=== PATIENT | female | born 1985 | race Caucasian/White ===

== ENCOUNTER 2020-05-02 19:51 | Emergency (ER) | payer OTHER, SELFPAY ==
[2020-05-02 20:19] VITALS: BP 143/85; PULSE 68; RESP 18; TEMP 530.5; TEMP 987; O2SAT 98; BMI 44.3
[2020-05-02 20:33] LABS: Basophils # 0.1 10^3/uL (0.0-0.1); Basophils % 1.2 %; Hematocrit 44.1 % (37.0-47.0); Hemoglobin 14.1 g/dL (11.5-15.3); Lymphocytes # 2.3 10^3/uL (0.8-4.8); Lymphocytes % 26.4 %; Mean Corpuscular Hemoglobin 27.9 pg (28.0-34.0); Mean Corpuscular Volume 87.3 fL (81-99); Mean Platelet Volume 9.8 fL (7.4-10.4); Monocytes # 0.8 10^3/uL (0.2-0.9); Neutrophils # 5.58 10^3/uL (1.8-7.7); Neutrophils % 63.2 %; Nucleated Red Blood Cells % 0 %; Platelet Count 296 10^3/cmm (130-400); Red Blood Count 5.05 10^6/uL (4.1-5.3); White Blood Count 8.9 10^3/uL (4.0-10.0)
[2020-05-02 20:53] LABS: Alanine Aminotransferase 12 U/L (0-33); Albumin Level 4.4 g/dL (3.5-5.2); Alkaline Phosphatase 72 IU/L (35-105); Anion Gap 12.3 (5-19); Aspartate Amino Transferase 14 U/L (0-32); Blood Urea Nitrogen 13 mg/dL (6-20); Calcium 9.1 mg/dL (8.5-10.5); Carbon Dioxide 28 mmol/L (22-29); Chloride 106 mmol/L (98-107); Globulin 2.9 g/dL (1.3-4.6); Glucose 84 mg/dL (65-115); Osmolality Calculated 289 mOsm/kg (285-295); Potassium 4.3 mmol/L (3.5-5.1); Sodium 142 mmol/L (136-145); Total Bilirubin 0.3 mg/dL (0.15-1.2); Total Protein 7.3 g/dL (6.6-8.7)
[2020-05-02 20:54] LABS: HCG, Serum Qual Negative (Negative)
--- NOTE | 2020-05-02 21:33 | W.ED.DIZZY ---
HPI - Dizziness General: Chief Complaint: Dizziness Stated Complaint: dizziness Time Seen by Provider: 05/02/20 21:30 Source: patient Mode of arrival: ambulatory Limitations: no limitations History of Present Illness: HPI Narrative: 34-year-old female who states she has been having dizziness off and on over the last 2 to 3 months. She states she feels like the room is spinning at times and feels like she may pass out sometimes. States that today she had a period where she felt like she cannot pass out. She has never actually passed out. States that her symptoms seem to be worse after she has not ate for a while. She denies any vomiting or diarrhea. Denies any chest pain. She denies any shortness of breath. Associated symptoms: Denies chest pain, nausea or vomiting Review of Systems Const: Reports: fatigue Eyes: Denies: blurry vision or eye discomfort ENMT: Denies: throat pain or dental pain Card: Denies: chest pain Resp: Denies: dyspnea GI: Denies: abdominal pain, nausea, vomiting or diarrhea : Denies: dysuria Musc: Denies: neck pain or back pain Skin/Breast: Denies: rash Neuro: Reports: dizziness Psych: Denies: depression [place]/Lymph: Denies: easy bruising All/Imm: Denies: urticaria Physical Exam Const: COMMON NORMALS: no acute distress, patient oriented x3 and healthy appearing HENMT: COMMON NORMALS: normocephalic and atraumatic HEAD & SCALP: normocephalic and atraumatic Eye: COMMON NORMALS: Equal, round and reactive pupils present and EOMs intact bilaterally PUPIL: Yes Equal, round and reactive pupils present Neck/C-Spine: COMMON NORMALS: full ROM and supple Chest: COMMONS NORMALS: normal inspection of the chest and normal palpation of entire chest wall Resp: COMMON NORMALS: normal respiratory effort, No retractions, No use of accessory muscles and clear to auscultation bilaterally AUSCULTATION: clear to auscultation bilaterally Cardio: COMMON NORMALS: regular rate, regular rhythm and No murmurs present (Cardio) RATE: regular rate RHYTHM: regular rhythm GI: COMMON NORMALS: Normal to inspection, nondistended, normoactive bowel sounds present, Soft to palpation, non-tender and no masses PALPATION: Yes Soft to palpation Extremity: COMMON NORMALS: normal to inspection and full ROM Neuro: COMMON NORMALS: patient oriented x3, moves all extremities and no focal motor deficits Psych: COMMON NORMALS: mental status grossly normal, Normal thought process present and cooperative THOUGHT PROCESS: Normal thought process present Skin: COMMON NORMALS: no rashes or lesions noted and no wounds GENERAL SKIN EXAM: no rashes or lesions noted Course Vital Signs: Vital signs: Vital Signs Temperature 987 F H 05/02/20 20:19 Pulse Rate 68 05/02/20 20:19 Respiratory Rate 18 05/02/20 20:19 Blood Pressure 143/85 05/02/20 20:19 Pulse Oximetry 98 05/02/20 20:19 MDM - Dizziness MDM Narrative: Medical decision making narrative: Patient presents here with dizziness has been going on for a month patient is well-appearing here and EKG and blood work is normal. She has no signs of cardiac cause or pulmonary embolism. Patient stable for discharge and will try to set up with a PCP. She is to return if worsening. She understands and agrees to the plan. Lab Data: Labs: Lab Results 05/02/20 05/02/20 05/02/20 Range/Units 20:28 20:28 20:28 WBC 8.9 (4.0-10.0) 10^3/ uL RBC 5.05 (4.1-5.3) 10^6/u L Hgb 14.1 (11.5-15.3) g/dL Hct 44.1 (37.0-47.0) % MCV 87.3 (81-99) fL MCH 27.9 L (28.0-34.0) pg MCHC 32.0 (30.0-36.0) g/dL RDW 13.0 (12.1-15.1) % Plt Count 296 (130-400) 10^3/c mm MPV 9.8 (7.4-10.4) fL Neut % (Auto) 63.2 % Lymph % (Auto) 26.4 % [place] % (Auto) 9.0 % Eos % (Auto) 0.0 % Baso % (Auto) 1.2 % Neut # (Auto) 5.58 (1.8-7.7) 10^3/u L Lymph # (Auto) 2.3 (0.8-4.8) 10^3/u L [place] # (Auto) 0.8 (0.2-0.9) 10^3/u L Eos # (Auto) 0.0 (0.0-0.8) 10^3/u L Baso # (Auto) 0.1 (0.0-0.1) 10^3/u L Nucleated RBC % (a uto) 0 % Nucleated RBCs # 0.0 /100WBC Sodium 142 (136-145) mmol/L Potassium 4.3 (3.5-5.1) mmol/L Chloride 106 (98-107) mmol/L Carbon Dioxide 28 (22-29) mmol/L Anion Gap 12.3 (5-19) BUN 13 (6-20) mg/dL Creatinine 0.7 (0.5-0.9) mg/dL GFR Calculation 97.0 (90-130) mL/min Glucose 84 (65-115) mg/dL Calculated Osmolal ity 289 (285-295) mOsm/k g Calcium 9.1 (8.5-10.5) mg/dL Total Bilirubin 0.3 (0.15-1.2) mg/dL AST 14 (0-32) U/L ALT 12 (0-33) U/L Alkaline Phosphata se 72 (35-105) IU/L Total Protein 7.3 (6.6-8.7) g/dL Albumin 4.4 (3.5-5.2) g/dL Globulin 2.9 (1.3-4.6) g/dL HCG, Qual Negative (Negative) EKG Data^: EKG 1: Attestation: I personally reviewed and interpreted this EKG as follows: EKG interpretation date: 05/02/20 EKG interpretation time: 21:49 Interpretation: nsr hr [address] or t wave abnormalities qrs 87 qtc 388 Discharge Plan Discharge Patient Disposition: Home Clinical Impression: Dizziness Condition: Stable Discharge Orders: Discharge Order (Routine); Ordered 05/02/20 Ordered By: Johnson Mayorga Discharge Diet: Advance as tolerated Discharge Activity: Resume usual activity Patient Instructions: Dizziness (ED) Coding Level of Care Code ED Sawdust Drier for Chg Fwd Exam Comprehensive
[2020-05-02 22:12] VITALS: PULSE 84; RESP 18; O2SAT 99
[2020-05-02 23:16] LABS: Thyroid Stimulating Hormone 3.03 uIU/mL (0.27-4.20)
--- NOTE | 2020-05-04 12:59 | DCPLANNER ---
senior catering sales manager had message to speak with patient about getting established with a primary care physician. senior catering sales manager called patient at phone number [phone], unable to speak with patient at this time. senior catering sales manager left a voicemail for patient to return manager of case phone call.
== END 2020-05-02 22:13 | disposition home or self-care (01) ==
PROVIDERS: Emergency Provider Emergency Medicine
DX: R42 Dizziness and giddiness (principal)
CPT/HCPCS: 12345; 80053; 84443; 84703; 85025; 99282; 99283

== ENCOUNTER 2020-11-21 11:06 | Emergency (ER) | payer SELFPAY ==
[2020-11-21 11:13] VITALS: BP 162/105; PULSE 82; RESP 18; TEMP 36.7; O2SAT 97; BMI 47.0
--- NOTE | 2020-11-21 12:05 | ED_ITS ---
HPI - Eye Problem General: Chief complaint: Eye Problems Stated complaint: L EYE ISSUES Time Seen by Provider: 11/21/20 11:14 History of Present Illness: HPI Narrative: Patient is a 35-year-old female who comes to the ER complaining of left eye redness. She said yesterday she was seen at urgent care center and they told her she had a hyphema as well. Today there is no hyphema but there is left-sided conjunctivitis. She has discharge and was given antibiotic eyedrop. She has only used 1 drop since yesterday and none today. Came to the ER today because the pain is worse this morning. She keeps her eyes closed because it is sensitive to light. No significant pain or burning described in the ER. MD chief complaint: eye pain and eye redness Duration: constant Location: left eye Eye Symptoms: redness and photophobia If Pain, Quality: burning Associated symptoms: Denies headache(s) or neck pain Review of Systems General: Reports: 10 or more systems reviewed and unremarkable except in HPI and below Const: Denies: fatigue Eyes: Reports: photophobia, eye discharge and eye redness; Denies: change in vision or blurry vision ENMT: Denies: throat pain, swelling of lips/tongue, ear or mastoid pain or nasal congestion Card: Denies: chest pain, palpitations, irregular heart rhythm, edema, dyspnea on exertion or orthopnea Resp: Denies: dyspnea, productive cough or non-productive cough GI: Denies: abdominal pain, diarrhea or GI cramping : Denies: flank pain, difficulty voiding, urinary frequency or urinary urgency Musc: Denies: neck pain, back pain, extremity pain, joint pain, joint redness, limited range of motion or muscle weakness Skin/Breast: Denies: rash, pruritus, erythema, skin pain or skin tenderness Neuro: Denies: headache(s), numbness in extremities, weakness in extremities, sensory changes, difficulty walking, dizziness, confusion or Slurred speech present Psych: Denies: anxiety or depression Endo: Denies: polyuria All/Imm: Denies: urticaria, throat swelling or tongue swelling PFS ED PFSH: Social History (Updated 11/20/20 @ 15:50 by Carrie Menchaca LPN) Smoking and tobacco status: never smoked Physical Exam Const: COMMON NORMALS: no acute distress, average body habitus, patient oriented x3, no limitations, healthy appearing, alert and well nourished GENERAL APPEARANCE: cooperative, comfortable, well kempt and well developed ORIENTATION/CONSCIOUSNESS: Yes awake, Yes oriented to person, Yes oriented to place and Yes oriented to time HENMT: COMMON NORMALS: normocephalic, external ears normal and Normal external nose present HEAD & SCALP: normal to inspection and normocephalic NOSE: Normal external nose present EXTERNAL EAR: Yes external ears normal MOUTH: Normal oral and palatal mucosa present THROAT: posterior oropharynx normal Eye: COMMON NORMALS: Equal, round and reactive pupils present and EOMs intact bilaterally GENERAL EYE: appearance normal, both eyes and all related struc tures PUPIL: Yes Equal, round and reactive pupils present OTHER: Right eye normal. Left eye conjunctivitis with some mild discharge seen. No hyphema seen. Fluorescein exam unremarkable. Neck/C-Spine: COMMON NORMALS: full ROM, no lymphadenopathy, no meningeal signs and no JVD GENERAL: Yes normal visual inspection Lymph: LYMPHATIC: no lymphadenopathy noted Chest: COMMONS NORMALS: normal inspection of the chest and normal palpation of entire chest wall Resp: COMMON NORMALS: normal respiratory effort, No retractions, No use of accessory muscles, clear to auscultation bilaterally and percussion normal EFFORT & INSPECTION: Yes able to speak in complete sentences AUSCULTATION: clear to auscultation bilaterally PERCUSSION: percussion normal Cardio: COMMON NORMALS: no JVD, regular rate, regular rhythm, S1 normal heart sound present, S2 normal heart sound present and Peripheral pulses 2+ throughout RATE: regular rate RHYTHM: regular rhythm HEART SOUNDS: S1 normal heart sound present and S2 normal heart sound present PERIPHERAL PULSES: Peripheral pulses 2+ throughout GI: COMMON NORMALS: Normal to inspection, nondistended, normoactive bowel sounds present, Soft to palpation, non-tender and no masses INSPECTION: Yes normal to inspection PALPATION: Yes Soft to palpation : COMMON NORMALS: Yes no CVA tenderness BLADDER/KIDNEY EXAM: Yes no CVA tenderness Back/Pelvis: COMMON NORMALS: no CVA tenderness, thoracic and lumbar spine normal to inspection, no thoracic nor lumbar tenderness and thoraco-lumbar ROM normal Extremity: COMMON NORMALS: normal to inspection, full ROM, capillary refill normal, no joint enlargement and no pedal edema GENERAL: Yes normal exam except as noted Neuro: COMMON NORMALS: patient oriented x3, CN's II-XII intact bilaterally, moves all extremities, no focal motor deficits, no sensory deficits noted and gait normal SENSORIUM/ORIENTATION: Yes alert, Yes oriented to person, Yes oriented to place and Yes oriented to time MENINGEAL SIGNS: Yes no meningeal signs Psych: COMMON NORMALS: mental status grossly normal, Normal thought process present, cooperative, normal affect and speech normal APPEARANCE: Yes well kempt ATTITUDE: Yes calm SPEECH: Yes normal speech THOUGHT PROCESS: Normal thought process present Skin: COMMON NORMALS: no rashes or lesions noted GENERAL SKIN EXAM: no rashes or lesions noted Course Vital Signs: Vital signs: Vital Signs Temperature 98.0 F 11/21/20 11:13 Pulse Rate 82 11/21/20 11:13 Respiratory Rate 18 11/21/20 11:13 Blood Pressure 162/105 11/21/20 11:13 Pulse Oximetry 97 11/21/20 11:13 MDM - Eye Problem MDM Narrative: Medical decision making narrative: Patient comes to the ER with left eye conjunctivitis. She was seen yesterday at urgent care and given antibiotic eyedrops. She picked it up yesterday and has only given herself 1 drop in the left eye yesterday. Recommended following the prescription and it is likely the irritant effect of the antibiotic eyedrops which makes it feel slightly worse on the first day. Follow-up with [facility] tomorrow which she already has the information for as well. Discharge Plan Discharge Patient Disposition: Home Clinical Impression: Bacterial conjunctivitis Condition: Stable Prescriptions: No Action moxifloxacin 0.5 % drops 1 drp ophthalmic (eye) TID 4 Days Qty: 3 RF: 0 Discharge Orders: Discharge ED (Routine); Ordered 11/21/20 Ordered By: Tee Sims Discharge Diet: Advance as tolerated Discharge Activity: Resume usual activity Patient Instructions: Conjunctivitis (ED), Opioid Safety Activity Restrictions/Additional Instructions: You have conjunctivitis. Please continue to use the moxifloxacin as instructed. Follow-up with [facility] tomorrow and return to the ER with worsening symptoms. Coding Level of Care Code ED Slip Cover Cutter for Kelsey Ortega Exam Comprehensive
[2020-11-21 12:20] VITALS: BP 145/96; PULSE 75; RESP 16; O2SAT 97
== END 2020-11-21 12:22 | disposition home or self-care (01) ==
PROVIDERS: Emergency Provider Family Medicine
DX: H10.89 Other conjunctivitis (principal)

== ENCOUNTER 2021-08-23 17:27 | Emergency (ER) | payer SELFPAY ==
[2021-08-23 17:43] VITALS: BP 151/84; PULSE 77; RESP 18; TEMP 37.2; O2SAT 99; BMI 47.0
[2021-08-23 18:45] LABS: Add Urine Microscopic? YES; Bilirubin Urine Neg (Negative); Blood Urine 3+ (Negative); Glucose Urine UA Norm (Normal); Ketones Urine Negative (Negative); Leukocyte Esterase Urine Negative (Negative); Nitrate Urine Negative (Negative); Protein Urine Neg (Negative); Urine Appearance Hazy (CLEAR); Urine Color Yellow (Yellow); Urobilinogen Urine 1 mg/dL (Negative); pH Urine 6 (5-7)
[2021-08-23 18:46] LABS: Add Urine Culture? No; Bacteria Urine TRACE /hpf; Mucus Urine TRACE /hpf; WBC Urine 0-4 /hpf (0-5)
== END 2021-08-23 19:07 ==
PROVIDERS: Nurse Practitioner Family
DX: Z53.21 Procedure and treatment not carried out due to patient leaving prior to being seen by health care provider (principal)
CPT/HCPCS: 81001

== ENCOUNTER 2021-08-25 17:40 | Inpatient (IN) | payer SELFPAY ==
[2021-08-25 17:46] VITALS: BP 165/90; PULSE 86; RESP 16; TEMP 36.2; O2SAT 98
--- NOTE | 2021-08-25 18:03 | USR_ITS ---
PROCEDURE INFORMATION: Exam: US Abdomen, Limited; Right Upper Quadrant Exam date and time: 08/25/2021 6:03 PM Age: 36 years old Clinical indication: Abdominal pain TECHNIQUE: Imaging protocol: US abdomen. Real time ultrasound with image documentation. Limited exam focused on the right upper quadrant. COMPARISON: US OB >14 Weeks [id number] 06/27/2017 1:08 PM FINDINGS: Liver: Normal. No masses. Gallbladder: Cholelithiasis with gallbladder wall thickening to 8.5 mm concerning for acute cholecystitis. Positive Kwok's sign. Common bile duct: Normal. No stones. No dilation. Pancreas: Visualized pancreas is unremarkable. Right kidney: Normal. No mass. No hydronephrosis. US/US gall bladder [id number] IMPRESSION: Cholelithiasis with gallbladder wall thickening to 8.5 mm concerning for acute cholecystitis. Positive Kwok's sign.
--- NOTE | 2021-08-25 19:34 | W.ED.GENADLT ---
Documented by User: Adan Hirsch MD 08/27/21 22:32 HPI - General Adult General: Chief complaint: Abdominal Pain Stated complaint: RUQ/UPPER CENTRAL ABD PAIN: GALLBLADDER PROBLEMS Time Seen by Provider: 08/25/21 19:23 History of Present Illness: HPI narrative: Patient is a 36-year-old female with no significant past medical history presents emergency room with complaints of right upper quadrant abdominal pain is constant since 630 this morning. Patient tells me that first she first noticed pain about 2 weeks ago. Since then, patient on Sunday has had intermittent colicky pain after eating ice cream to start 30 minutes later. The pain subsided while patient was in the waiting room in the emergency room decided to go home. Since, earlier this morning, patient developed having a significant right upper quadrant abdominal pain has been constant. Patient reports one episode of vomiting with associated nausea reports subjective fever chills at home. Denies any diarrhea, melena hematochezia, or complaints at this time. Denies any prior abd surgeries or hx of kidney stones. No complaints of chest pain, shortness breath, palpitation, sore throat, cough, or running nose. Patient reports pain is 5 out of 10 currently, is a squeezing colicky pain. Onset:2 weeks ago, acutely since 6:30am Duration:ongoing Location:home Severity:moderate Review of Systems Narrative: Constitutional: +subjective fever/chills. HEENT: No vision changes CV: No chest pain, no palpitations PULM: no cough, no dyspnea. GI: +RUQ abdominal pain, +N/+V/-D. : No dysuria MSKEL: No muscle pain SKIN: No new rashes, no lesions. NEURO: No headache, no focal weakness. HEME: No visible bruises PSYCH: Normal mood PFSH ED PFSH: Social History Smoking and tobacco status: never smoked Female Reproductive History: Date of last menstrual period: 08/22/21 Physical Exam Narrative: EXAM NARRATIVE: Head: Atraumatic Eyes: PERRL, conjunctiva without injection ENT: Mucous membrane moist NECK: Supple, ROM intact LUNGS: LCTAB, no crackles/rhonchi CV: RRR ABDOMEN: Soft, +RUQ focal TTP. NO guarding rebound, guarding, rigidity. No CVA tenderness to percussion. +Kwok/Neg McBurney's point tenderness, no suprabupic tenderness to palpation. EXTREMITY: Normal ROM SKIN: No rash or erythema NEURO: Awake and alert, no focal motor deficits PSYCH: Normal mood and affect Course Vital Signs: Vital signs: Vital Signs Temperature 99.5 F 08/27/21 20:00 Pulse Rate 119 H 08/27/21 20:00 Respiratory Rate 17 08/27/21 20:00 Blood Pressure 122/70 08/27/21 20:00 Pulse Oximetry 91 08/27/21 20:00 MDM - General Adult MDM Narrative: Medical decision making narrative: 6-year-old female presented to the emergency room with 1 day of right upper quadrant abdominal pain.. On exam, patient is afebrile, has focal tenderness to to palpation plus Kwok sign. White count 15.5. Ultrasound showed gallbladder thickness of 8.5 mm, CBD not dilated. Case was discussed Dr. Brandt who agrees with OR. Well-controlled with morphine. Patient is no longer vomiting. Patient received cefazolin. Preop labs ordered. Lab Data: Labs: Lab Results 08/25/21 08/25/21 08/25/21 19:23 19:25 19:25 WBC 15.5 10^3/uL H 10 ^3/uL (4.0-10.0) RBC 5.30 10^6/uL 10^6 /uL (4.1-5.3) Hgb 14.6 g/dL g/dL (11.5-15.3) Hct 45.3 % % (37.0-47.0) MCV 85.5 fl fl (81-99) MCH 27.5 pg L pg (28.0-34.0) MCHC 32.2 g/dL g/dL (30.0-36.0) RDW 12.5 % % (12.1-15.1) Plt Count 335 10^3/cmm 10^3 /cmm (130-400) MPV 9.7 fL fL (7.4-10.4) Neut % (Auto) 83.0 % % Lymph % (Auto) 9.0 % % [place] % (Auto) 7.1 % % Eos % (Auto) 0.0 % % Baso % (Auto) 0.6 % % Neut # (Auto) 12.84 10^3/uL H 1 0^3/uL (1.8-7.7) Lymph # (Auto) 1.4 10^3/uL 10^3/ uL (0.8-4.8) [place] # (Auto) 1.1 10^3/uL H 10^ 3/uL (0.2-0.9) Eos # (Auto) 0.0 10^3/uL 10^3/ uL (0.0-0.8) Baso # (Auto) 0.1 10^3/uL 10^3/ uL (0.0-0.1) Nucleated RBC % (a uto) 0 % % Nucleated RBCs # 0.0 /100WBC /100W BC PT 14.80 SECONDS SEC ONDS (12.1-14.9) INR 1.13 (0.8-1.2) APTT 33.1 SECONDS SECO NDS (23.9-36.7) Sodium 139 mmol/L mmol/L (136-145) Potassium 3.8 mmol/L mmol/L (3.5-5.1) Chloride 101 mmol/L mmol/L (98-107) Carbon Dioxide 22 mmol/L mmol/L (22-29) Anion Gap 19.8 H (5-19) BUN 7 mg/dL mg/dL (6-20) Creatinine 0.6 mg/dL mg/dL (0.5-0.9) GFR Calculation 114.4 mL/min mL/m in (90-130) Glucose 120 mg/dL H mg/dL (65-115) Calculated Osmolal ity 287 mOsm/kg mOsm/ kg (285-295) Calcium 8.5 mg/dL mg/dL (8.5-10.5) Total Bilirubin 0.6 mg/dL mg/dL (0.15-1.2) AST 15 U/L U/L (0-32) ALT 13 U/L U/L (0-33) Alkaline Phosphata se 92 IU/L IU/L (35-105) Total Protein 7.3 g/dL g/dL (6.6-8.7) Albumin 4.2 g/dL g/dL (3.5-5.2) Globulin 3.1 g/dL g/dL (1.3-4.6) Lipase 25 U/L U/L (13-60) HCG, Qual Urine Color Urine Appearance Urine pH Ur Specific Gravit y Urine Protein Urine Glucose (UA) Urine Ketones Urine Blood Urine Nitrate Urine Bilirubin Urine Urobilinogen Ur Leukocyte Lina ase Urine RBC Urine WBC Ur Squamous Epith Cells Amorphous Sediment Urine Bacteria Urine Mucus 08/25/21 08/25/21 19:25 19:25 WBC RBC Hgb Hct MCV MCH MCHC RDW Plt Count MPV Neut % (Auto) Lymph % (Auto) [place] % (Auto) Eos % (Auto) Baso % (Auto) Neut # (Auto) Lymph # (Auto) [place] # (Auto) Eos # (Auto) Baso # (Auto) Nucleated RBC % (a uto) Nucleated RBCs # PT INR APTT Sodium Potassium Chloride Carbon Dioxide Anion Gap BUN Creatinine GFR Calculation Glucose Calculated Osmolal ity Calcium Total Bilirubin AST ALT Alkaline Phosphata se Total Protein Albumin Globulin Lipase HCG, Qual Negative (Negative) Urine Color Yellow (Yellow) Urine Appearance Cloudy (CLEAR) Urine pH 5 (5-7) Ur Specific Gravit y 1.030 (1.005-1.030) Urine Protein Neg (Negative) Urine Glucose (UA) Norm (Normal) Urine Ketones 1+ H (Negative) Urine Blood 3+ H (Negative) Urine Nitrate Negative (Negative) Urine Bilirubin 1+ H (Negative) Urine Urobilinogen 1 mg/dL H mg/dL (Negative) Ur Leukocyte Lina ase Negative (Negative) Urine RBC 5-10 /hpf H /hpf (0-2) Urine WBC 0-4 /hpf H /hpf (0-5) Ur Squamous Epith Cells 5-10 /hpf H /hpf (0-5) Amorphous Sediment Not Reportable Urine Bacteria 1+ /hpf H /hpf (NONE) Urine Mucus 1+ /hpf /hpf Discharge Plan Discharge Patient Disposition: Admitted As Inpatient Admit Provider: Adrianna Lutz Clinical Impression: Abdominal pain, Acute cholecystitis Condition: Stable Discharge Diet: Advance as tolerated Discharge Activity: Resume usual activity Coding Level of Care Code ED Aquatic Life Laborer for Chg Fwd Documented by User: Johnson Mayorga MD 08/25/21 23:42 HPI - General Adult General: Chief complaint: Abdominal Pain Stated complaint: RUQ/UPPER CENTRAL ABD PAIN: GALLBLADDER PROBLEMS Time Seen by Provider: 08/25/21 19:23 [facility] ED PFSH: Social History Smoking and tobacco status: never smoked Course Vital Signs: Vital signs: Vital Signs Temperature 99.5 F 08/27/21 20:00 Pulse Rate 119 H 08/27/21 20:00 Respiratory Rate 17 08/27/21 20:00 Blood Pressure 122/70 08/27/21 20:00 Pulse Oximetry 91 08/27/21 20:00 MDM - General Adult MDM Narrative: Medical decision making narrative: Patient was seen by a surgeon down in the ER plan to admit likely do surgery in the morning she has been stable here and got a dose of antibiotics. Lab Data: Labs: Lab Results 08/25/21 08/25/21 08/25/21 19:23 19:25 19:25 WBC 15.5 10^3/uL H 10 ^3/uL (4.0-10.0) RBC 5.30 10^6/uL 10^6 /uL (4.1-5.3) Hgb 14.6 g/dL g/dL (11.5-15.3) Hct 45.3 % % (37.0-47.0) MCV 85.5 fl fl (81-99) MCH 27.5 pg L pg (28.0-34.0) MCHC 32.2 g/dL g/dL (30.0-36.0) RDW 12.5 % % (12.1-15.1) Plt Count 335 10^3/cmm 10^3 /cmm (130-400) MPV 9.7 fL fL (7.4-10.4) Neut % (Auto) 83.0 % % Lymph % (Auto) 9.0 % % [place] % (Auto) 7.1 % % Eos % (Auto) 0.0 % % Baso % (Auto) 0.6 % % Neut # (Auto) 12.84 10^3/uL H 1 0^3/uL (1.8-7.7) Lymph # (Auto) 1.4 10^3/uL 10^3/ uL (0.8-4.8) [place] # (Auto) 1.1 10^3/uL H 10^ 3/uL (0.2-0.9) Eos # (Auto) 0.0 10^3/uL 10^3/ uL (0.0-0.8) Baso # (Auto) 0.1 10^3/uL 10^3/ uL (0.0-0.1) Nucleated RBC % (a uto) 0 % % Nucleated RBCs # 0.0 /100WBC /100W BC PT 14.80 SECONDS SEC ONDS (12.1-14.9) INR 1.13 (0.8-1.2) APTT 33.1 SECONDS SECO NDS (23.9-36.7) Sodium 139 mmol/L mmol/L (136-145) Potassium 3.8 mmol/L mmol/L (3.5-5.1) Chloride 101 mmol/L mmol/L (98-107) Carbon Dioxide 22 mmol/L mmol/L (22-29) Anion Gap 19.8 H (5-19) BUN 7 mg/dL mg/dL (6-20) Creatinine 0.6 mg/dL mg/dL (0.5-0.9) GFR Calculation 114.4 mL/min mL/m in (90-130) Glucose 120 mg/dL H mg/dL (65-115) Calculated Osmolal ity 287 mOsm/kg mOsm/ kg (285-295) Calcium 8.5 mg/dL mg/dL (8.5-10.5) Total Bilirubin 0.6 mg/dL mg/dL (0.15-1.2) AST 15 U/L U/L (0-32) ALT 13 U/L U/L (0-33) Alkaline Phosphata se 92 IU/L IU/L (35-105) Total Protein 7.3 g/dL g/dL (6.6-8.7) Albumin 4.2 g/dL g/dL (3.5-5.2) Globulin 3.1 g/dL g/dL (1.3-4.6) Lipase 25 U/L U/L (13-60) HCG, Qual Urine Color Urine Appearance Urine pH Ur Specific Gravit y Urine Protein Urine Glucose (UA) Urine Ketones Urine Blood Urine Nitrate Urine Bilirubin Urine Urobilinogen Ur Leukocyte Lina ase Urine RBC Urine WBC Ur Squamous Epith Cells Amorphous Sediment Urine Bacteria Urine Mucus 08/25/21 08/25/21 19:25 19:25 WBC RBC Hgb Hct MCV MCH MCHC RDW Plt Count MPV Neut % (Auto) Lymph % (Auto) [place] % (Auto) Eos % (Auto) Baso % (Auto) Neut # (Auto) Lymph # (Auto) [place] # (Auto) Eos # (Auto) Baso # (Auto) Nucleated RBC % (a uto) Nucleated RBCs # PT INR APTT Sodium Potassium Chloride Carbon Dioxide Anion Gap BUN Creatinine GFR Calculation Glucose Calculated Osmolal ity Calcium Total Bilirubin AST ALT Alkaline Phosphata se Total Protein Albumin Globulin Lipase HCG, Qual Negative (Negative) Urine Color Yellow (Yellow) Urine Appearance Cloudy (CLEAR) Urine pH 5 (5-7) Ur Specific Gravit y 1.030 (1.005-1.030) Urine Protein Neg (Negative) Urine Glucose (UA) Norm (Normal) Urine Ketones 1+ H (Negative) Urine Blood 3+ H (Negative) Urine Nitrate Negative (Negative) Urine Bilirubin 1+ H (Negative) Urine Urobilinogen 1 mg/dL H mg/dL (Negative) Ur Leukocyte Lina ase Negative (Negative) Urine RBC 5-10 /hpf H /hpf (0-2) Urine WBC 0-4 /hpf H /hpf (0-5) Ur Squamous Epith Cells 5-10 /hpf H /hpf (0-5) Amorphous Sediment Not Reportable Urine Bacteria 1+ /hpf H /hpf (NONE) Urine Mucus 1+ /hpf /hpf Discharge Plan Discharge Patient Disposition: Admitted As Inpatient Admit Provider: Adrianna Lutz Clinical Impression: Abdominal pain, Acute cholecystitis Condition: Stable Discharge Diet: Advance as tolerated Discharge Activity: Resume usual activity Coding Level of Care Code ED Aquatic Life Laborer for Javierg Jordan
[2021-08-25 19:37] VITALS: RESP 18
[2021-08-25] MEDS: acetaminophen 500 mg Tablet 1000 MG PO (19:37)
[2021-08-25] MEDS: morphine 4 mg/mL SDV 1 mL IVP (19:37)
[2021-08-25 19:40] LABS: Basophils # 0.1 10^3/uL (0.0-0.1); Basophils % 0.6 %; Hematocrit 45.3 % (37.0-47.0); Hemoglobin 14.6 g/dL (11.5-15.3); Lymphocytes # 1.4 10^3/uL (0.8-4.8); Mean Corpuscular HGB Conc 32.2 g/dL (30.0-36.0); Mean Corpuscular Hemoglobin 27.5 pg (28.0-34.0); Mean Corpuscular Volume 85.5 fl (81-99); Mean Platelet Volume 9.7 fL (7.4-10.4); Monocytes # 1.1 10^3/uL (0.2-0.9); Monocytes % 7.1 %; Neutrophils # 12.84 10^3/uL (1.8-7.7); Nucleated Red Blood Cells % 0 %; Platelet Count 335 10^3/cmm (130-400); Red Cell Distribution Width 12.5 % (12.1-15.1); White Blood Count 15.5 10^3/uL (4.0-10.0)
[2021-08-25 19:50] LABS: Add Urine Microscopic? YES; Bilirubin Urine 1+ (Negative); Blood Urine 3+ (Negative); Glucose Urine UA Norm (Normal); Ketones Urine 1+ (Negative); Leukocyte Esterase Urine Negative (Negative); Nitrate Urine Negative (Negative); Protein Urine Neg (Negative); Urine Appearance Cloudy (CLEAR); Urine Color Yellow (Yellow); Urobilinogen Urine 1 mg/dL (Negative); pH Urine 5 (5-7)
[2021-08-25 19:51] LABS: Add Urine Culture? No; Bacteria Urine 1+ /hpf; Mucus Urine 1+ /hpf; Other Sediment, Urine 3+; WBC Urine 0-4 /hpf (0-5)
[2021-08-25 19:56] LABS: HCG, Serum Qual Negative (Negative)
[2021-08-25 19:57] LABS: Alanine Aminotransferase 13 U/L (0-33); Albumin Level 4.2 g/dL (3.5-5.2); Alkaline Phosphatase 92 IU/L (35-105); Anion Gap 19.8 (5-19); Aspartate Amino Transferase 15 U/L (0-32); Blood Urea Nitrogen 7 mg/dL (6-20); Calcium 8.5 mg/dL (8.5-10.5); Carbon Dioxide 22 mmol/L (22-29); Chloride 101 mmol/L (98-107); Globulin 3.1 g/dL (1.3-4.6); Glomerular Filtration Rate 114.4 mL/min (90-130); Glucose 120 mg/dL (65-115); Lipase 25 U/L (13-60); Osmolality Calculated 287 mOsm/kg (285-295); Potassium 3.8 mmol/L (3.5-5.1); Sodium 139 mmol/L (136-145); Total Bilirubin 0.6 mg/dL (0.15-1.2); Total Protein 7.3 g/dL (6.6-8.7)
[2021-08-25] MEDS: sodium chloride 0.9% 1,000 ML 999 ML IV (20:36)
--- NOTE | 2021-08-25 21:07 | ECG_ITS ---
[facility] Test Date: 2021-08-25 Pat Name: Shannon Whittaker Department: Room: Gender: Female Outside Sales Manager: : 1985 Requested By: Adan Hirsch Order Number: [id number] Gera MD: Dianelys Schmidt M.D. Measurements Intervals [place] Rate: 62 P: 10 ID: [id number] QRS: -1 QRSD: 85 T: -9 QT: 377 QTc: 386 Interpretive Statements SINUS RHYTHM WITH SINUS ARRHYTHMIA MODERATE VOLTAGE CRITERIA FOR LVH, CONSIDER NORMAL VARIANT [MEETS CRITERIA IN ONE OF: R(aVL), S(V1), R(V5), R(V5/V6)+S(V1)] No previous ECG available for comparison Electronically Signed On 08-27-2021 7:43:42 PREPARATION PLANT REPAIRER by Dianelys Schmidt M.D. [email or web address] [email or web address] [id number]
[2021-08-25 21:24] LABS: INR 1.13 (0.8-1.2)
[2021-08-25 21:25] LABS: Partial Thromboplastin Time 33.1 SECONDS (23.9-36.7)
[2021-08-25] MEDS: ceFAZolin 1,000 MG in sodium chloride 0.9% (plus) 50 ML 100 MG IV (21:36)
--- NOTE | 2021-08-25 23:53 | PM.CONSULT ---
Providers/Reason For Consult Consulting Physician/Specialty*: General surgery Reason for Consult*: Acute calculus cholecystitis Attending Physician: Adrianna Lutz MD Primary Care Provider: Dolores Birmingham DO History of Present Illness History of Present Illness Shannon Whittaker is a 36 year old female who presents with epigastric abdominal pain, 6-7 out of 10 in intensity that is radiating to her back. She had a similar episode 2 days ago when she ate ice cream. The pain however subsided on its own. Today the pain has not subsided on its own. She had pain similar to this a few weeks ago she does not know what initiated the pain at that time. She denies fevers and chills, she denies nausea. Patient reports that when she was having abdominal ultrasound that the probe was tender at the right upper quadrant and that the ER physician elicited a positive Kwok sign. Past medical history: Patient denies any. Patient appears to have morbid obesity however. Past surgical history: Patient denies any abdominal surgeries, she reports dilatation curettage. Social history: Patient denies any alcohol or tobacco abuse. She works at [employer]. She lives with her and 2 children. Allergies: Patient denies any allergies. Family history: Patient reports that her paternal grand mother of pancreatic cancer at a very old age. Patient obtained an ultrasound at the ER which demonstrates gallbladder wall thickening to 8 mm. Review of Systems General: Reports: 10 or more systems reviewed and unremarkable except in HPI and below Meds/Allergies Home Medications and Allergies Home Medications Medication Instructions Recorded Confirmed Last Taken Type moxifloxacin 0.5 % eye drops 1 drp OPHTHALMIC (EYE) TID 4 Days 11/20/20 11/20/20 Unknown Rx #3 ml Allergies Allergy/AdvReac Type Severity Reaction Status Date / Time No Known Allergies Allergy Verified 11/20/20 15:49 PFSH Acute PFSH: Social History (Updated 11/20/20 @ 15:50 by Carrie Menchaca LPN) Smoking and tobacco status: never smoked Female Reproductive History: Date of last menstrual period: 08/22/21 Vitals/I&O/Wt Last Vital Signs Temp 97.1 F L 08/25/21 17:46 Pulse 86 08/25/21 17:46 Resp 18 08/25/21 19:37 BP 165/90 08/25/21 17:46 Pulse Ox 98 08/25/21 17:46 08/25/21 08/25/21 08/26/21 14:59 22:59 06:59 Intake Total 1050 / 1050 Balance 1050 / 1050 A&P Additional A&P Information 36-year-old female presenting with morbid obesity and epigastric abdominal pain of ultrasound demonstrating gallbladder wall thickening to 8.5 mm and a positive Kwok sign, white blood cell count of 15. Given her age, female gender, and obesity status as well as having 2 children, in addition to her epigastric pain and ultrasound finding of gallbladder wall thickening; all these data points are consistent with presentation of acute calculus cholecystitis. The LFTs are within normal limits including the total bilirubin and the alkaline phosphatase. Laparoscopic possible open cholecystectomy is indicated to resolve the patient's symptoms and prevent further worsening of her gallbladder. The risks benefits alternatives indications and expected perioperative course of this procedure for the patient was explained in simple details and she desires to proceed after expressing understanding of them. As this patient has normal LFTs, we shall proceed with laparoscopic cholecystectomy without intraoperative cholangiogram unless need arises intraoperatively. Plan: 1. N.p.o. after midnight IV fluids 2. IV antibiotics to prevent further infectious propagation of the cholecystitis 3. To the OR tomorrow for laparoscopic cholecystectomy. Coding Level of Care Code Acute Global Program Director for Kelsey Ortega
[2021-08-26] VITALS (24 sets, daily range): BP systolic 106–163; BP diastolic 68–97; PULSE 53–97; RESP 14–22; TEMP 36.1–37.1; O2SAT 92–100
--- NOTE | 2021-08-26 00:02 | PM.PN ---
Vitals/I&O/Wt Last Vital Signs Temp 97.1 F L 08/25/21 17:46 Pulse 86 08/25/21 17:46 Resp 18 08/25/21 19:37 BP 165/90 08/25/21 17:46 Pulse Ox 98 08/25/21 17:46 08/25/21 08/25/21 08/26/21 14:59 22:59 06:59 Intake Total 1050 / 1050 Balance 1050 / 1050 Data : 08/25/21 19:25 08/25/21 19:25 A&P Additional A&P Information I saw and examined the patient. She is ready to proceed to the OR. The risks benefits indications alternatives and benefits of laparoscopic possible open cholecystectomy was explained to the patient. She expressed understanding desires to proceed. Attestations Medical Necessity Statement*: Admission required due to the need for laparoscopic cholecystectomy Coding Level of Care Code Acute Nuclear Powerplant Mechanic for Kelsey Ortega
--- NOTE | 2021-08-26 00:22 | PM.HP ---
Providers/Chief Complaint Admitting Physician: Adrianna Lutz MD Primary Care Provider: Dolores Birmingham DO Chief Complaint: RUQ/UPPER CENTRAL ABD PAIN: GALLBLADDER PROBLEMS History of Present Illness Shannon Whittaker is a 36 year old female without known medical comorbidties p/w upper abdominal pain that started 2 days ago, intermittent, radiating into her back. No h/o trauma. Originally pain started 2 days ago while eating some ice cream, was transient and resolved. HAs had similar episodes of transient pain lasting ~30 min at a time over the past couple of months. Presented to ER today when pain did not resolve. ROS + for nausea, poor appetie. No alteration in BM. No fever. US obtained in ER showed features of acute calculous cholecystitis with + Kwok's sign. LFTs WNL. LMP - 08/22/21. Last - 2018. past h/o D&C but no other abdominal procedures. Transiently hypertensive 165/90 mmhg in ER, resolved with pain control. Denies past h/o HTN, DM, CAD. Review of Systems General: Reports: 10 or more systems reviewed and unremarkable except in HPI and below Const: Denies: fever(s), chills or body aches Eyes: Denies: change in vision, blurry vision or photophobia ENMT: Denies: throat pain, enlarged tonsils, odynophagia or nasal congestion Card: Denies: chest pain, palpitations, irregular heart rhythm, edema, swelling of feet/ankles, lightheadedness, pre-syncope, dyspnea on exertion or orthopnea Resp: Denies: dyspnea, productive cough, non-productive cough, wheezing, stridor, pain on inspiration, change in phlegm color, hemoptysis or chest congestion GI: Reports: abdominal pain and nausea; Denies: vomiting, hematemesis, coffee ground emesis, dysphagia, heartburn, constipation, GI cramping, change in stool character, hematochezia or melena : Denies: flank pain, difficulty voiding, dysuria, urinary frequency, urinary urgency, urinary hesitancy or hematuria Musc: Denies: neck pain, back pain, extremity pain, joint swelling, joint warmth or deformity Neuro: Denies: headache(s), numbness in extremities, weakness in extremities, sensory changes, difficulty walking, frequent falls, dizziness, vertigo, behavioral changes, Slurred speech present or seizure-like activity Psych: Denies: anxiety, depression, suicidal ideation or homicidal ideation Endo: Denies: polyuria, polydipsia, tired all the time, cold intolerance or hot flashes [place]/Lymph: Denies: easy bruising or easy bleeding Medications/Allergies Home Medications Medication Instructions Recorded Confirmed Last Taken Type moxifloxacin 0.5 % eye drops 1 drp OPHTHALMIC (EYE) TID 4 Days 11/20/20 11/20/20 Unknown Rx #3 ml Allergies Allergy/AdvReac Type Severity Reaction Status Date / Time No Known Allergies Allergy Verified 11/20/20 15:49 PFSH Acute PFSH: Social History Smoking and tobacco status: never smoked Female Reproductive History: Date of last menstrual period: 08/22/21 Vitals/I&O/Wt Last Vital Signs Temp 97.1 F L 08/25/21 17:46 Pulse 86 08/25/21 17:46 Resp 18 08/25/21 19:37 BP 165/90 08/25/21 17:46 Pulse Ox 98 08/25/21 17:46 08/25/21 08/25/21 08/26/21 14:59 22:59 06:59 Intake Total 1050 / 1050 Balance 1050 / 1050 Physical Exam Narrative: EXAM NARRATIVE: General: No acute distress, AO x3 HEENT: PERRLA, pupils bilaterally equal and reactive, pallors not present Chest: Normal vesicular breath sounds, no added sounds, equal good air entry bilaterally CVS: S1-S2 regular, no murmurs, no tachycardia, no gallops, no rubs Abdomen: Soft, discomfort to palpaton epigastric region, no organomegaly, bowel sounds present Neuro: No focal deficits, no facial deformity, AO x3, power 5/5 in all limbs Data : 08/25/21 19:25 08/25/21 19:25 Attestation for Other Data: I personally reviewed and interpreted the following: Other data: Laboratory Results WBC 15.5 10^3/uL (4.0-10.0) H 08/25/21 19:25 RBC 5.30 10^6/uL (4.1-5.3) 08/25/21 19:25 Hgb 14.6 g/dL (11.5-15.3) 08/25/21 19: Hct 45.3 % (37.0-47.0) 08/25/21: MCV 85.5 fl (81-99) 08/25/21: MCH 27.5 pg (28.0-34.0) L 08/25/21: MCHC 32.2 g/dL (30.0-36.0) 08/25/21: RDW 12.5 % (12.1-15.1) 08/25/21: Plt Count 335 10^3/cmm (130-400) 08/25/21: MPV 9.7 fL (7.4-10.4) 08/25/21: Neut % (Auto) 83.0 % 08/25/21: Lymph % (Auto) 9.0 % 08/25/21: [place] % (Auto) 7.1 % 08/25/21: Eos % (Auto) 0.0 % 08/25/21: Baso % (Auto) 0.6 % 08/25/21: Neut # (Auto) 12.84 10^3/uL (1.8-7.7) H 08/25/21: Lymph # (Auto) 1.4 10^3/uL (0.8-4.8) 08/25/21: [place] # (Auto) 1.1 10^3/uL (0.2-0.9) H 08/25/21: Eos # (Auto) 0.0 10^3/uL (0.0-0.8) 08/25/21: Baso # (Auto) 0.1 10^3/uL (0.0-0.1) 08/25/21: Nucleated RBC % (auto) 0 % 08/25/21 Nucleated RBCs # 0.0 /100WBC 08/25/21: PT 14.80 SECONDS (12.1-14.9) 08/25/21: INR 1.13 (0.8-1.2) 08/25/21: APTT 33.1 SECONDS (23.9-36.7) 08/25/21 19:23 Sodium 139 mmol/L (136-145) 08/25/21 19:25 Potassium 3.8 mmol/L (3.5-5.1) 08/25/21 19:25 Chloride 101 mmol/L (98-107) 08/25/21 19:25 Carbon Dioxide 22 mmol/L (22-29) 08/25/21 19:25 Anion Gap 19.8 (5-19) H 08/25/21 19:25 BUN 7 mg/dL (6-20) 08/25/21 19:25 Creatinine 0.6 mg/dL (0.5-0.9) 08/25/21 19:25 GFR Calculation 114.4 mL/min (90-130) 08/25/21 19:25 Glucose 120 mg/dL (65-115) H 08/25/21 19:25 Calculated Osmolality 287 mOsm/kg (285-295) 08/25/21 19:25 Calcium 8.5 mg/dL (8.5-10.5) 08/25/21 19:25 Total Bilirubin 0.6 mg/dL (0.15-1.2) 08/25/21 19:25 AST 15 U/L (0-32) 08/25/21 19:25 ALT 13 U/L (0-33) 08/25/21 19:25 Alkaline Phosphatase 92 IU/L (35-105) 08/25/21 19:25 Total Protein 7.3 g/dL (6.6-8.7) 08/25/21 19:25 Albumin 4.2 g/dL (3.5-5.2) 08/25/21 19:25 Globulin 3.1 g/dL (1.3-4.6) 08/25/21 19:25 Lipase 25 U/L (13-60) 08/25/21 19:25 HCG, Qual Negative (Negative) 08/25/21 19:25 Urine Color Yellow (Yellow) 08/25/21 19:25 Urine Appearance Cloudy (CLEAR) 08/25/21 19:25 Urine pH 5 (5-7) 08/25/21 19:25 Ur Specific [place] 1.030 (1.005-1.030) 08/25/21 19:25 Urine Protein Neg (Negative) 08/25/21 19:25 Urine Glucose (UA) Norm (Normal) 08/25/21 19:25 Urine Ketones 1+ (Negative) H 08/25/21 19:25 Urine Blood 3+ (Negative) H 08/25/21 19:25 Urine Nitrate Negative (Negative) 08/25/21 19:25 Urine Bilirubin 1+ (Negative) H 08/25/21 19:25 Urine Urobilinogen 1 mg/dL (Negative) H 08/25/21 19:25 Ur Leukocyte Esterase Negative (Negative) 08/25/21 19:25 Urine RBC 5-10 /hpf (0-2) H 08/25/21 19:25 Urine WBC 0-4 /hpf (0-5) H 08/25/21 19:25 Ur Squamous Epith Cells 5-10 /hpf (0-5) H 08/25/21 19:25 Amorphous Sediment Not Reportable 08/25/21 19:25 Urine Bacteria 1+ /hpf (NONE) H 08/25/21 19:25 Urine Mucus 1+ /hpf 08/25/21 19:25 Impressions Gallbladder Ultrasound 08/25/21 18:03 IMPRESSION: Cholelithiasis with gallbladder wall thickening to 8.5 mm concerning for acute cholecystitis. Positive Kwok's sign. A&P Assessment and plan (1) Acute cholecystitis: admit med/surg NPO IVF d5NS @75cc/hr prn morphine , toradol for pain control Prn zofran for nausea Empiric Piperacillin/Tazobactam given leukocytosis, possible infection, no signs of severe sepsis at this time. Will suffice as pre op ppx additionally. general surgery consult- planned lap galina in am Status: Acute Attestations Medical Necessity Statement*: anticipate > 2midnight admission for above defined care Coding Level of Care Code Acute Bakery Worker Conveyor Line for [facility] Fwd Diagnoses Acute cholecystitis K81.0
[2021-08-26] MEDS: famotidine 20 mg/2 mL INJ IVP (01:14)
[2021-08-26] MEDS: dextrose 5%-sod chloride 0.9% 1,000 ML 75 ML IV ×2 (01:14→15:45)
[2021-08-26] MEDS: piperacillin-tazobactam 3.375 GM in sodium chloride 0.9% (plus) 50 ML IV ×3 (01:14→15:46)
[2021-08-26] MEDS: ketorolac 30 mg/mL INJ 15 MG IVP ×2 (08:25→15:45)
--- NOTE | 2021-08-26 09:34 | ANES.PREANE2 ---
Pre-Anesthetic Assessment Pre-Anesthetic Assessment: Height/Weight: Height 1.7 m Weight 143.834 kg Temp Pulse Resp BP Pulse Ox 97.8 F 67 16 119/73 98 08/26/21 07:58 08/26/21 07:58 08/26/21 07:58 08/26/21 07:58 08/26/21 07:58 Proposed Procedure: Operation Date: 08/26/21 10:00 Proposed Procedures p Laparoscopic Cholecystectomy(Not Applicable) - Mitch Brandt MD Was Beta Sasha taken within 24 hours: N/A Was Clonidine taken within 24 hours: N/A Social: Social History: No alcohol and No tobacco Exam: Pre-Anes Outpt Exam: alert, oriented x 3, clear to auscultation bilaterally and regular rate & rhythm Airway: Submandibular: WNL Cervical ROM: WNL MP: 2 Dentition: Full History/ROS: No significant history except as noted GI: Comments: cholecystitis Metabolic: Metabolic: Morbid obesity Anesthetic Plan: ASA status: 2 Anesthesia: General Risk of > 500 ml blood loss (7ml/kg in children): No Meds/Allergies Current Medications: Current Medications Generic Name Dose Route Start Last Admin Trade Name Freq PRN Reason Stop Dose Admin Famotidine 20 mg 08/26/21 00:15 08/26/21 01:14 Famotidine 20 Mg /2 Ml Inj IVP 20 mg Q12H FABBY Administration Dextrose/Sodium Ch loride 1,000 mls @ 75 ml s/hr 08/26/21 00:15 08/26/21 01:14 Dextrose 5%-Sod Chloride 0.9% IV 75 mls/hr .[id number] FABBY Administration Piperacillin Sod/T azobactam 50 mls @ 12.5 mls /hr 08/26/21 01:00 08/26/21 08:24 Sod 3.375 gm/ So dium Chloride IV 12.5 mls/hr Q8H FABBY Administration Protocol Ketorolac Trometha mine 15 mg 08/26/21 02:25 08/26/21 08:25 Ketorolac 30 Mg/ Ml Inj IVP 08/29/21 02:24 15 mg Q8H PRN Administration MODERATE PAIN PFSH Anesthesia PFSH: Social History Smoking and tobacco status: never smoked Female Reproductive History: Date of last menstrual period: 08/22/21 Data Anesthesia CBC & Chem 7: 08/25/21 19:25 08/25/21 19:25 Other Labs: Laboratory Results - last 48 hr 08/25/21 08/25/21 08/25/21 19:23 19:25 19:25 WBC 15.5 H RBC 5.30 Hgb 14.6 Hct 45.3 MCV 85.5 MCH 27.5 L MCHC 32.2 RDW 12.5 Plt Count 335 MPV 9.7 Neut % (Auto) 83.0 Lymph % (Auto) 9.0 [place] % (Auto) 7.1 Eos % (Auto) 0.0 Baso % (Auto) 0.6 Neut # (Auto) 12.84 H Lymph # (Auto) 1.4 [place] # (Auto) 1.1 H Eos # (Auto) 0.0 Baso # (Auto) 0.1 Nucleated RBC % (auto) 0 Nucleated RBCs # 0.0 PT 14.80 INR 1.13 APTT 33.1 Sodium 139 Potassium 3.8 Chloride 101 Carbon Dioxide 22 Anion Gap 19.8 H BUN 7 Creatinine 0.6 GFR Calculation 114.4 Glucose 120 H Calculated Osmolality 287 Calcium 8.5 Total Bilirubin 0.6 AST 15 ALT 13 Alkaline Phosphatase 92 Total Protein 7.3 Albumin 4.2 Globulin 3.1 Lipase 25 HCG, Qual Urine Color Urine Appearance Urine pH Ur Specific [place] Urine Protein Urine Glucose (UA) Urine Ketones Urine Blood Urine Nitrate Urine Bilirubin Urine Urobilinogen Ur Leukocyte Esterase Urine RBC Urine WBC Ur Squamous Epith Cells Amorphous Sediment Urine Bacteria Urine Mucus 08/25/21 08/25/21 19:25 19:25 WBC RBC Hgb Hct MCV MCH MCHC RDW Plt Count MPV Neut % (Auto) Lymph % (Auto) [place] % (Auto) Eos % (Auto) Baso % (Auto) Neut # (Auto) Lymph # (Auto) [place] # (Auto) Eos # (Auto) Baso # (Auto) Nucleated RBC % (auto) Nucleated RBCs # PT INR APTT Sodium Potassium Chloride Carbon Dioxide Anion Gap BUN Creatinine GFR Calculation Glucose Calculated Osmolality Calcium Total Bilirubin AST ALT Alkaline Phosphatase Total Protein Albumin Globulin Lipase HCG, Qual Negative Urine Color Yellow Urine Appearance Cloudy Urine pH 5 Ur Specific [place] 1.030 Urine Protein Neg Urine Glucose (UA) Norm Urine Ketones 1+ H Urine Blood 3+ H Urine Nitrate Negative Urine Bilirubin 1+ H Urine Urobilinogen 1 H Ur Leukocyte Esterase Negative Urine RBC 5-10 H Urine WBC 0-4 H Ur Squamous Epith Cells 5-10 H Amorphous Sediment Not Reportable Urine Bacteria 1+ H Urine Mucus 1+ Cardiac Studies: No Data to Display
[2021-08-26] MEDS: sodium chloride 0.9% 1,000 ML 30 ML IV (09:39)
--- NOTE | 2021-08-26 13:25 | P.OP_ITS ---
Operative Report Date of procedure: August 26, 2021 Pre-op Diagnosis: Acute calculus cholecystitis Post-op diagnosis: same Procedure Done: 1. Laparoscopic cholecystectomy 2. Liver biopsy of segment 2 Pathology: 1. Gallbladder and contents 2. Liver biopsy segment 2 Surgeon: Mitch Brandt Anesthesia: General Estimated blood loss (mL): 100 Condition: stable Disposition: floor Procedure: Patient was taken to the OR by the OR staff. She was laid supine induced and intubated. She was prepped and draped in a sterile fashion. A timeout was performed. A cutdown technique at the umbilicus and to the peritoneal cavity with a 15 mm trocar. 5 mL trochars were inserted at the epigastric and in the right mid and right lower quadrants. The gallbladder was grasped and retracted. Immediately was appreciated that the gallbladder was significantly inflamed with the body of the gallbladder adherence to omentum peritoneal tissue and to the anel hepatis. This was carefully teased apart. As progress was slow, a top-down approach was made with division of the peritoneal attachments of the gallbladder to the liver with the use of hook cautery. I stayed very close to the gallbladder to ensure no injury whatsoever to the anel hepatis. Eventually only 1 structure was noted to be entering into the gallbladder from the anel hepatis. The gallbladder was otherwise successfully mobilized from all of her attachments and only tied to the patient's anatomy by the single structure. At this point I believe I had achieved the critical view and that the cystic artery had been obliterated with the use of hook cautery, as I could only see liver behind the gallbladder. There was no bile leaking from the anel hepatis at this point. There were no open lumens or transected lumens evident. A clip was placed on the gallbladder side of this single tubular structure. An attempt was made to perform a cholangiogram by partially transecting the lumen of the single structure with the use of laparoscopic scissors. Unfortunately a small arterial bleed occurred immediately afterwards. It was then appreciated that at least part if not the entire nature of this tubular structure was the cystic artery. It is unclear at this point if this was the cystic duct as well which was fused to the cystic artery. Because of the arterial bleeding clip had to be placed on this singular tubular structure in its entire circumference on either side of the transection and therefore cholangiogram could not be performed. Hemostasis was achieved. 2 additional clips were placed on the patient staying side of this tubular st ructure. It was then divided and the gallbladder was then placed in an Endo Catch bag. The specimen was removed and at the back table I personally section the gallbladder myself identified numerous gallstones. I could not identify a cystic duct lumen. It is possible that due to the significant inflammation of the patient's disease process that the cystic duct was completely obliterated and scarred in. I conducted a thorough search of the anel hepatis. There was no active bile leak whatsoever. 3 L of sterile saline irrigation was utilized and no bile leak was noted. I found a small tubular structure coming off the anel hepatis which may have had a diminutive cystic duct within it and was definitely not the common bile duct. I clipped this twice. At this point unable to perform a cholangiogram and having done everything in my ability to look for a bile leak I proceeded to conclude the case. I placed an 8 Dominican JOHN drain in the gallbladder fossa, and performed liver biopsy on segment 2 afternoon to find a small mass. This was sent for permanent pathology. The umbilical fascial incision which had to be enlarged to remove the gallbladder was closed laparoscopically with 0 Vicryl in a [id number] fashion. Pneumoperitoneum was then released and the skin incisions were closed with 4-0 Monocryl. All the incisions were reinforced with Dermabond and the umbilical incision was reinforced with a pressure dressing with the use of gauze and Tegaderm. The patient tolerated procedure well and awoke from anesthesia to be transferred to the PACU. The disposition of the patient is good. I called the patient's and informed him of the significant difficulty of the case and he expressed an understanding of this.
--- NOTE | 2021-08-26 13:42 | SUR.PHASEI ---
received patient from or staff. patient responds to verbal.good ventilating well. damian drain patent with serosanguineous fluid noted.
--- NOTE | 2021-08-26 13:45 | SUR.PHASEI ---
oral airway removed.airway patent. nsr on monitor.
[2021-08-26] MEDS: fentaNYL 50 mcg/mL INJ 2mL IVP (14:02)
[2021-08-26] MEDS: ondansetron 2 mg/ML SDV 2 mL 4 MG (14:02)
--- NOTE | 2021-08-26 14:05 | SUR.PHASEI ---
patient medicated for pain and nausea. patient states she feels better.
--- NOTE | 2021-08-26 14:18 | SUR.PHASEI ---
patient states she wants to go to her hospital bed. report called to 2nd floor nurse . patient transported to floor with o2.
[2021-08-26 14:35] LABS: Coronavirus Test Green County Not Detected
--- NOTE | 2021-08-26 14:51 | P.PN_ITS ---
Subjective Subjective: Interval history: This morning patient was seen, she continues to have right upper quadrant pain, no fevers, chills, no nausea, vomiting, no history of lung disease, no history of smoking, denies a history of DVTs, denies a history of PEs, denies being Vitals/I&O/Wt Last Vital Signs Temp 98.7 F 08/26/21 14:40 Pulse 69 08/26/21 14:40 Resp 16 08/26/21 14:40 BP 125/78 08/26/21 14:40 Pulse Ox 92 08/26/21 14:40 08/25/21 08/26/21 08/26/21 22:59 06:59 14:59 Intake Total 1050 / 1050 50 / 1100 1700 / 1700 Output Total 100 / 100 Balance 1050 / 1050 50 / 1100 1600 / 1600 Weight last 48 hrs Weight 143.834 kg Physical Exam Const: COMMON NORMALS: no acute distress and patient oriented x3 HENMT: COMMON NORMALS: normocephalic HEAD & SCALP: normocephalic Resp: COMMON NORMALS: normal respiratory effort, No retractions, No use of accessory muscles and clear to auscultation bilaterally AUSCULTATION: clear to auscultation bilaterally Cardio: COMMON NORMALS: regular rate, regular rhythm, S1 normal heart sound present and S2 normal heart sound present RATE: regular rate RHYTHM: regular rhythm HEART SOUNDS: S1 normal heart sound present and S2 normal heart sound present GI: COMMON NORMALS: Normal to inspection, nondistended, normoactive bowel sounds present and non-tender PALPATION: Yes Tenderness to palpation present (GI) Details: RUQ Extremity: COMMON NORMALS: no pedal edema Neuro: COMMON NORMALS: patient oriented x3 Psych: COMMON NORMALS: mental status grossly normal Data : 08/25/21 19:25 08/25/21 19:25 A&P Assessment and plan (1) Acute cholecystitis: admit med/surg NPO IVF d5NS @75cc/hr prn morphine , toradol for pain control Prn zofran for nausea Empiric Piperacillin/Tazobactam given leukocytosis, possible infection, no signs of severe sepsis at this time. Will suffice as pre op ppx additionally. general surgery consult- planned lap galina today Status: Acute Attestations Medical Necessity Statement*: Patient requires hospitalization for acute cholecystitis Coding Level of Care Code Acute Associate Dean Of Women for [facility] Fw Diagnoses Acute cholecystitis K81.0
[2021-08-26] MEDS: morphine 4 mg/mL SDV 1 mL 2 MG IVP ×2 (14:56→20:37)
[2021-08-26] MEDS: ondansetron 2 mg/ML SDV 2 mL 4 MG IVP (14:57)
--- NOTE | 2021-08-26 15:13 | PC.CHAP ---
Pastoral Care Encounter/Spiritual Assessment Type of Contact [] Declined sheriffs detective visit [] Patient/Family/Request visit [] Outpatient visit [] Follow-up visit [] Physician referral [] Code/Alert [] Routine visit [] Staff referral [] Actively dying [] Patient sleeping [] Family support [] [xx] Out of room [] Palliative care [] [] Receiving care in room [] Pre-surgical visit [] Trauma [] Long length of stay [] ICU visit [] Other: Relational/Emotional Strength [] Patient feels connected with others/family/visitors/staff [] Distress [] Loneliness/isolation [] Abandonment Spirituality of Patient [] Person of Haley [] Attends Yarsanism of their Haley [] Believes in Prayer [] Reads Bible or Christian materials [] There are Spiritual issues to be addressed Tool Carrier Interventions [] Prayer [] Active listening [] Non-anxious presence [] Spiritual/emotional support [] Crisis/trauma care [] Spiritual counseling [] Bereavement support [] Provided bereavement packet [] Provided Bible/devotional materials [] Provided toy/stuffed animal, coloring book to patient or family member [] Provided Communion [] Anointing/Onyx [] Salvation [] Completed spiritual assessment [] Other: Impact on Illness or Injury [] Angry [] Fearful [] Anxious [] Often cries [] Exhaustion [] Unable to work [] Unable to attend adventism [] Unable to walk/stand [] Unable to read [] Unable to drive [] Unable to eat/drink [] Unable to sleep [] Unable to be with family [] Patient intubated [] Other: Summary Time spent with patient
--- NOTE | 2021-08-26 15:37 | PC.NURSE ---
PT'S RING IN SPECIMEN CUP AND UNDERWEAR IN CLEAR BAG WITH PT SWEATBAND DECORATING MACHINE OPERATOR BOTH, TAKEN TO PACU.
[2021-08-26] MEDS: oxyCODONE 5 mg IR Tab/Cap PO ×2 (18:05→23:05)
[2021-08-26 19:30] LABS: Basophils # 0.1 10^3/uL (0.0-0.1); Basophils % 0.3 %; Hematocrit 42.2 % (37.0-47.0); Hemoglobin 13.4 g/dL (11.5-15.3); Lymphocytes # 0.5 10^3/uL (0.8-4.8); Mean Corpuscular HGB Conc 31.8 g/dL (30.0-36.0); Mean Corpuscular Hemoglobin 28.2 pg (28.0-34.0); Mean Corpuscular Volume 88.8 fl (81-99); Monocytes # 1.5 10^3/uL (0.2-0.9); Monocytes % 6.5 %; Neutrophils # 20.34 10^3/uL (1.8-7.7); Neutrophils % 90.7 %; Nucleated Red Blood Cells % 0 %; Platelet Count 245 10^3/cmm (130-400); Red Blood Count 4.75 10^6/uL (4.1-5.3); Red Cell Distribution Width 12.6 % (12.1-15.1); White Blood Count 22.4 10^3/uL (4.0-10.0)
[2021-08-26 19:54] LABS: Alanine Aminotransferase 92 U/L (0-33); Albumin Level 3.4 g/dL (3.5-5.2); Alkaline Phosphatase 97 IU/L (35-105); Blood Urea Nitrogen 7 mg/dL (6-20); Calcium 7.8 mg/dL (8.5-10.5); Carbon Dioxide 15 mmol/L (22-29); Chloride 107 mmol/L (98-107); Globulin 2.7 g/dL (1.3-4.6); Glomerular Filtration Rate 114.4 mL/min (90-130); Glucose 174 mg/dL (65-115); Osmolality Calculated 286 mOsm/kg (285-295); Sodium 137 mmol/L (136-145); Total Protein 6.1 g/dL (6.6-8.7)
[2021-08-26 19:57] LABS: Anion Gap 19.4 (5-19); Aspartate Amino Transferase 122 U/L (0-32); Potassium 4.4 mmol/L (3.5-5.1)
--- NOTE | 2021-08-26 20:12 | PM.PN ---
Vitals/I&O/Wt Last Vital Signs Temp 97.8 F 08/26/21 16:00 Pulse 75 08/26/21 16:00 Resp 16 08/26/21 18:05 BP 106/68 08/26/21 16:00 Pulse Ox 98 08/26/21 16:00 08/26/21 08/26/21 08/26/21 06:59 14:59 22:59 Intake Total 50 / 1100 2700 / 2700 50 / 2750 Output Total 100 / 100 Balance 50 / 1100 2600 / 2600 50 / 2650 Weight last 48 hrs Weight 317 lb 1.6 oz Data : 08/26/21 18:58 08/26/21 19:20 A&P Additional A&P Information Pt is post-op from laparoscopic cholecystectomy. JOHN drain has produced 25ml of sanguinous output. Patient has pain from surgery 5-02/17 but under control with medications. The labs show T brittanie of 1.0. This is reassuring that there is no bile leak and no common duct injury. Attestations Medical Necessity Statement*: Inpatient stay warranted for postoperative recovery from lap galina Coding Level of Care Code Acute Motorcycle Police for Chg Jordan
[2021-08-27] VITALS (10 sets, daily range): BP systolic 105–157; BP diastolic 65–97; PULSE 90–119; RESP 16–32; TEMP 36.7–37.8; O2SAT 91–96
[2021-08-27] MEDS: ketorolac 30 mg/mL INJ 15 MG IVP ×3 (00:50→18:36)
[2021-08-27] MEDS: famotidine 20 mg/2 mL INJ IVP ×2 (00:50→12:18)
[2021-08-27] MEDS: piperacillin-tazobactam 3.375 GM in sodium chloride 0.9% (plus) 50 ML IV ×3 (00:51→18:37)
[2021-08-27] MEDS: oxyCODONE 5 mg IR Tab/Cap PO ×4 (04:35→22:48)
[2021-08-27] MEDS: dextrose 5%-sod chloride 0.9% 1,000 ML 75 ML IV (04:36)
[2021-08-27 07:06] LABS: Albumin Level 2.8 g/dL (3.5-5.2); Alkaline Phosphatase 84 IU/L (35-105); Blood Urea Nitrogen 5 mg/dL (6-20); Calcium 7.5 mg/dL (8.5-10.5); Carbon Dioxide 17 mmol/L (22-29); Chloride 106 mmol/L (98-107); Globulin 2.6 g/dL (1.3-4.6); Glomerular Filtration Rate 95.8 mL/min (90-130); Glucose 101 mg/dL (65-115); Osmolality Calculated 279 mOsm/kg (285-295); Sodium 136 mmol/L (136-145); Total Bilirubin 1.1 mg/dL (0.15-1.2); Total Protein 5.4 g/dL (6.6-8.7)
[2021-08-27 07:15] LABS: Alanine Aminotransferase 78 U/L (0-33); Anion Gap 16.9 (5-19); Aspartate Amino Transferase 75 U/L (0-32); Potassium 3.9 mmol/L (3.5-5.1)
--- NOTE | 2021-08-27 10:45 | PM.PN ---
Vitals/I&O/Wt Last Vital Signs Temp 98.4 F 08/27/21 08:00 Pulse 90 08/27/21 08:00 Resp 16 08/27/21 08:00 BP 157/97 08/27/21 08:00 Pulse Ox 95 08/27/21 08:00 08/26/21 08/27/21 08/27/21 22:59 06:59 14:59 Intake Total 50 / 2750 972.5 / 3722.5 Output Total 25 / 125 15 / 140 Balance 25 / 2625 957.5 / 3582.5 Weight last 48 hrs Weight 317 lb 1.6 oz Data : 08/26/21 18:58 08/27/21 06:17 A&P Additional A&P Information 36-year-old female who is postop day 1 from laparoscopic cholecystectomy for acute on chronic cholecystitis calculus. Subjective: Patient reports very well controlled abdominal pain, very little need for pain medication. She tolerated liquid diet. She is ambulating. Objective: On physical examination the patient is alert oriented, comfortable appearing, abdominal exam shows healthy healing wounds. Minimal bruising. The JOHN drain has minimal amount of serosanguineous fluid. There is no bilious output. LFTs show total bilirubin of 1.1, alkaline phosphatase is less than 200. White blood cell count yesterday was 22. She is on IV Zosyn. No white count today it is pending. Assessment and plan: 46-year-old female with morbid obesity who is postop day 1 from laparoscopic cholecystectomy. JOHN drain is nonbilious and LFTs are normal. Advance her diet to low-fat. Continue the antibiotics. Continue the drain. If lab values are normal tomorrow and the JOHN drain has no bilious output, JOHN drain can be pulled and the patient discharged on a low-fat diet follow-up in 1 to [address] Laureano. Attestations Medical Necessity Statement*: Inpatient stay needed due to difficulty in removing gallbladder and monitoring for bile leak. Coding Level of Care Code Acute Oil And Gas Exploration Technician for Kelsey Ortega
[2021-08-27 12:19] LABS: Basophils # 0.1 10^3/uL (0.0-0.1); Basophils % 0.5 %; Hematocrit 36.9 % (37.0-47.0); Lymphocytes # 1.5 10^3/uL (0.8-4.8); Lymphocytes % 12.1 %; Mean Corpuscular HGB Conc 32.5 g/dL (30.0-36.0); Mean Corpuscular Hemoglobin 28.4 pg (28.0-34.0); Mean Corpuscular Volume 87.2 fl (81-99); Mean Platelet Volume 10.1 fL (7.4-10.4); Monocytes # 1.2 10^3/uL (0.2-0.9); Monocytes % 9.2 %; Neutrophils # 9.74 10^3/uL (1.8-7.7); Neutrophils % 77.8 %; Nucleated Red Blood Cells % 0 %; Platelet Count 255 10^3/cmm (130-400); Red Blood Count 4.23 10^6/uL (4.1-5.3); White Blood Count 12.5 10^3/uL (4.0-10.0)
--- NOTE | 2021-08-27 13:59 | PM.PN ---
Subjective Subjective: Interval history: Patient was seen this morning, she does not that she ambulated after her surgery yesterday, is passing gas from below, has not had a bowel movement, urinating well, no nausea, vomiting, no weakness, dizziness Vitals/I&O/Wt Last Vital Signs Temp 98.5 F 08/27/21 11:19 Pulse 99 08/27/21 11:19 Resp 16 08/27/21 12:18 BP 105/70 08/27/21 11:19 Pulse Ox 94 08/27/21 11:19 08/26/21 08/27/21 08/27/21 22:59 06:59 14:59 Intake Total 50 / 2750 972.5 / 3722.5 Output Total 25 / 125 15 / 140 Balance 25 / 2625 957.5 / 3582.5 Weight last 48 hrs Weight 143.834 kg Physical Exam Const: COMMON NORMALS: no acute distress and patient oriented x3 Resp: COMMON NORMALS: normal respiratory effort, No retractions, No use of accessory muscles and clear to auscultation bilaterally AUSCULTATION: clear to auscultation bilaterally Cardio: COMMON NORMALS: regular rate, regular rhythm, S1 normal heart sound present and S2 normal heart sound present RATE: regular rate RHYTHM: regular rhythm HEART SOUNDS: S1 normal heart sound present and S2 normal heart sound present GI: INSPECTION: Yes abdominal distension AUSCULTATION: Yes normoactive bowel sounds PALPATION: Yes Tenderness to palpation present (GI) (Generalized tenderness), No Guarding due to palpation present (GI) and No Rigid due to palpation OTHER: JOHN drain in place, serous output Extremity: COMMON NORMALS: no pedal edema Neuro: COMMON NORMALS: patient oriented x3 Psych: COMMON NORMALS: mental status grossly normal Data : 08/27/21 11:47 08/27/21 06:17 A&P Assessment and plan (1) Acute cholecystitis: Status post laparoscopic cholecystectomy -JOHN drain in place for serosanguineous fluid Monitoring LFTs, T bili admit med/surg Currently on a clear liquid diet IVF d5NS @75cc/hr, stop prn morphine , toradol for pain control Prn zofran for nausea Continue Zosyn SCDs for DVT prophylaxis Status: Acute Attestations Medical Necessity Statement*: Patient requires hospitalization for acute cholecystitis, status post cholecystectomy Coding Level of Care Code Acute Enrichment Assistant for g Fwd Diagnoses Acute cholecystitis K81.0
[2021-08-28] VITALS (10 sets, daily range): BP systolic 127–149; BP diastolic 79–97; PULSE 68–113; RESP 14–18; TEMP 36.8–37.7; O2SAT 90–97
[2021-08-28] MEDS: piperacillin-tazobactam 3.375 GM in sodium chloride 0.9% (plus) 50 ML IV ×3 (00:08→17:08)
[2021-08-28] MEDS: famotidine 20 mg/2 mL INJ IVP ×3 (00:08→23:10)
[2021-08-28 03:06] LABS: Basophils # 0.1 10^3/uL (0.0-0.1); Basophils % 0.6 %; Hematocrit 35.3 % (37.0-47.0); Hemoglobin 11.7 g/dL (11.5-15.3); Lymphocytes # 1.2 10^3/uL (0.8-4.8); Lymphocytes % 10.5 %; Mean Corpuscular HGB Conc 33.1 g/dL (30.0-36.0); Mean Corpuscular Hemoglobin 28.8 pg (28.0-34.0); Mean Corpuscular Volume 86.9 fl (81-99); Monocytes # 0.9 10^3/uL (0.2-0.9); Monocytes % 8.1 %; Neutrophils % 80.5 %; Nucleated Red Blood Cells % 0 %; Platelet Count 267 10^3/cmm (130-400); Red Blood Count 4.06 10^6/uL (4.1-5.3); White Blood Count 11.6 10^3/uL (4.0-10.0)
[2021-08-28] MEDS: ketorolac 30 mg/mL INJ 15 MG IVP ×2 (03:08→20:08)
[2021-08-28 03:36] LABS: Alanine Aminotransferase 65 U/L (0-33); Albumin Level 3.2 g/dL (3.5-5.2); Alkaline Phosphatase 84 IU/L (35-105); Anion Gap 17.5 (5-19); Aspartate Amino Transferase 43 U/L (0-32); Blood Urea Nitrogen 5 mg/dL (6-20); Calcium 7.9 mg/dL (8.5-10.5); Carbon Dioxide 20 mmol/L (22-29); Chloride 104 mmol/L (98-107); Globulin 2.4 g/dL (1.3-4.6); Glomerular Filtration Rate 141.2 mL/min (90-130); Glucose 91 mg/dL (65-115); Osmolality Calculated 283 mOsm/kg (285-295); Potassium 3.5 mmol/L (3.5-5.1); Sodium 138 mmol/L (136-145); Total Protein 5.6 g/dL (6.6-8.7)
[2021-08-28 03:39] LABS: C Reactive Protein 207.8 mg/L (0.0-4.9)
[2021-08-28] MEDS: oxyCODONE 5 mg IR Tab/Cap PO ×4 (08:27→23:09)
--- NOTE | 2021-08-28 10:37 | PM.PN ---
Vitals/I&O/Wt Last Vital Signs Temp 99.0 F 08/28/21 07:15 Pulse 102 H 08/28/21 07:15 Resp 14 08/28/21 08:27 BP 140/84 08/28/21 07:15 Pulse Ox 95 08/28/21 08:27 08/27/21 08/28/21 08/28/21 22:59 06:59 14:59 Intake Total 1170 / 1220 290 / 1510 Output Total 50 / 50 Balance 1155 / 1205 285 / 1490 -50 / -50 Data : 08/28/21 02:21 08/28/21 02:21 A&P Additional A&P Information 36-year-old female with morbid obesity POD 2 from Laparoscopic Cholecystectomy. Tolerating a diet, JOHN drain only serosanguineous in output. Ambulating. Abdominal pain well controlled. No fever. Overnight however had tachycardia to one hundred. I measured her heart rate right now on exam and I agree that the heart rate is in the 100s. On physical examination her abdomen is soft there is only minimal tenderness to the incisions. The rest of her wounds are clean and intact. White count is eleven. The LFTs are normal. There is clearly no bile leak The patient can be discharged home today. I discontinued the JOHN drain. She may shower in 2 days as the JOHN drain wound is quite large and may require a few days of healing and possibly some gauze dressing reinforcement. She should follow up in surgery clinic in 1 to [address] Laureano's group. Before being discharged home today, please obtain an EKG to ensure no pathology. I suspect the tachycardia is due to her being postoperative from surgery. Attestations Medical Necessity Statement*: Patient can be discharged home today. Inpatient stay was necessary to monitor for bile leak after laparoscopic cholecystectomy Coding Level of Care Code Acute Thermometer Tester for Kelsey Ortega
--- NOTE | 2021-08-28 10:39 | ECG_ITS ---
[facility] Test Date: 2021-08-28 Pat Name: Shannon Whittaker Department: Room: 273 Gender: Female Senior Analyst Programmer: : [id number] Requested By: Norman Judd Order Number: [id number] Gera MD: VITOR GUERRERO Measurements Intervals Mccarley Rate: 103 P: 12 AR: 137 QRS: 1 QRSD: 87 T: -15 QT: 324 QTc: 425 Interpretive Statements SINUS TACHYCARDIA MINIMAL VOLTAGE CRITERIA FOR LVH, CONSIDER NORMAL VARIANT [MEETS CRITERIA IN ONE OF: R(aVL), S(V1), R(V5), R(V5/V6)+S(V1)] PROBABLE INFERIOR MYOCARDIAL INFARCTION , OF INDETERMINATE AGE [35 ms Q WAVE IN II/aVF] Compared to ECG 08/25/2021 21:13:42 Myocardial infarct finding now present Sinus rhythm no longer present Sinus arrhythmia no longer present Electronically Signed On 08-28-2021 19:59:26 KERFER MACHINE OPERATOR by VITOR GUERRERO [id number]
[2021-08-28 11:28] LABS: Troponin(5th) Baseline 18 ng/L (0-10)
[2021-08-28] MEDS: enoxaparin 40 mg/0.4 mL Syringe SUBCUT (12:11)
--- NOTE | 2021-08-28 13:43 | CTR_ITS ---
PROCEDURE INFORMATION: Exam: CTA Chest With Contrast Exam date and time: 08/28/2021 1:43 PM Age: 36 years old Clinical indication: Abnormal findings. Sinus tachycardia. Elevated troponin. TECHNIQUE: Imaging protocol: Computed tomographic angiography of the chest with contrast. 3D rendering (Not supervised by radiologist): MIP and/or 3D reconstructed images were created by the technologist. Radiation optimization: All CT scans at this facility use at least one of these dose optimization techniques: automated exposure control; mA and/or kV adjustment per patient size (includes targeted exams where dose is matched to clinical indication); or iterative reconstruction. Contrast material: OMNI 350; Contrast volume: 95 ml; Contrast route: INTRAVENOUS (IV); COMPARISON: US gall bladder [id number] 08/25/2021 7:45 PM RADIATION DOSE METRICS: Total DLP (mGy-cm): 511.46 FINDINGS: Pulmonary arteries: Assessment for pulmonary embolus is compromised by streak and motion artifacts as well as suboptimal bolus timing. There is a small filling defect in the right middle lobe pulmonary artery extending into a couple branches suspicious for subtle pulmonary embolus (series 2, images 210 to 217). Aorta: No thoracic aortic aneurysm. No thoracic aortic dissection. Thyroid: Indeterminate right thyroid nodule measuring 2.1 cm. An indeterminate isthmic thyroid nodule measures 2.4 cm. Lungs: Dependent consolidation likely reflects atelectasis bilaterally. Subsegmental atelectasis is noted bilaterally. No pulmonary mass. Pleural spaces: Small right and trace left pleural effusions. No pneumothorax. Heart: The heart is enlarged. Trace pericardial fluid. Heart RV/LV ratio: The RV to LV ratio is 0.9. Lymph nodes: A subcarinal lymph node measures 1.2 x 2.3 cm. Diaphragm: No hiatal hernia. Gallbladder and bile ducts: The gallbladder has been removed. There is mild residual edema/wispy hemorrhage in the gallbladder fossa. The spleen is enlarged measuring 13.8 cm. A periportal lymph node measures 1.3 x 1.6 cm. A separate periportal lymph node measures 1.4 x 2.3 cm. Bones/joints: No acute fracture is seen. CT/CT angio chest PE protcl [id number] IMPRESSION: 1. Assessment for pulmonary embolus is compromised by streak and motion artifacts as well as suboptimal bolus timing. There is a small filling defect in the right middle lobe pulmonary artery extending into a couple branches suspicious for subtle pulmonary embolus. There is no evidence of right heart strain. 2. Small right and trace left pleural effusions. 3. Dependent consolidation is seen bilaterally that likely reflects atelectasis. Pneumonia is difficult to completely exclude. 4. Mild mediastinal lymphadenopathy. 5. Cardiomegaly. 6. Indeterminate thyroid nodules. Recommend nonemergent thyroid ultrasound to better characterize. 7. The gallbladder has been removed. There is mild residual edema/wispy hemorrhage in the gallbladder fossa. 8. Splenomegaly with periportal lymphadenopathy. COMMENTS: Consistent with the [place]'s Incidental Findings Committee white paper ([place] [employer]iol 2015): In patients under 35 years old with an incidental thyroid nodule equal to or greater than [address], MRI or extrathyroidal US, further evaluation with dedicated thyroid US is recommended for patients with normal life expectancy and without comorbidities. For smaller nodules without suspicious features, no further evaluation or follow up is recommended.
[2021-08-28 14:04] LABS: Troponin 5 2HR 16.05 ng/L (0-10)
[2021-08-28 14:05] LABS: Troponin 5 2HR Delta -1.95 ABS# (0-10)
[2021-08-28] MEDS: iohexol 350 mg/mL 100 mL Btl IV (14:27)
--- NOTE | 2021-08-28 15:38 | USCV_ITS ---
Shannon Whittaker Age: 36 Gender: F : 1985 Exam Date: 08/28/2021 16:41 Ordering Phys: Norman Judd MD Technologist: JORGE A Exam Location: [facility] [place] Indication: Shortness of breath, assess for right heart strain BP: 140 / 84 HR: 98 Rhythm: Sinus Technical Quality: Fair MEASUREMENTS (Male / Female) Normal Values 2D ECHO LV Diastolic Diameter PLAX 4.4 cm 4.2 - 5.9 / 3.9 - 5.3 cm LV Systolic Diameter PLAX 2.8 cm IVS Diastolic Thickness 1.3 cm 0.6 - 1.0 / 0.6 - 0.9 cm IVS Systolic Thickness 1.5 cm LVPW Diastolic Thickness 1.1 cm 0.6 - 1.0 / 0.6 - 0.9 cm LVPW Systolic Thickness 1.0 cm RV Chamber Size 2.7 cm LV Ejection Fraction 2D Teich 68.2 % LV Ejection Fraction MOD 2C 73.0 % LV Ejection Fraction 2C AL 73.6 % LA Width 3.0 cm LA Height 4.8 cm RA Width 2.7 cm RA Height 4.7 cm M-MODE LV Diastolic Diameter MM 5.5 cm 4.2 - 5.9 / 3.9 - 5.3 cm LV Systolic Diameter MM 3.4 cm LV Ejection Fraction MM Teich 67.0 % IVS Diastolic Thickness MM 1.3 cm 0.6 - 1.0 / 0.6 - 0.9 cm IVS Systolic Thickness MM 1.5 cm LVPW Diastolic Thickness MM 1.1 cm 0.6 - 1.0 / 0.6 - 0.9 cm LVPW Systolic Thickness MM 1.3 cm DOPPLER TR Peak Velocity 306.0 cm/s TR Peak Gradient 37.5 mmHg Right Atrial Pressure 3.0 mmHg Pulmonary Artery Systolic Pressu 40.5 mmHg FINDINGS Left Ventricle Normal left ventricular cavity size. Normal left ventricular systolic function. No regional wall motion abnormalities. Left ventricular ejection fraction is estimated at 60 %. Right Ventricle Right Atrium Left Atrium Mitral Valve Aortic Valve Tricuspid Valve Pulmonic Valve Pericardium Aorta CONCLUSIONS Limited echo therefore no Doppler data was included 1-Normal left ventricular cavity size. Normal left ventricular systolic function. No regional wall motion abnormalities. Left ventricular ejection fraction is estimated at 60 %. 2-All the valves including aortic mitral tricuspid and pulmonic opening and closing fine no Doppler assessment was performed due to limited quality study 3-There is no pericardial effusion. 4-There are no prior echocardiogram studies to compare. Please note that no Doppler analysis for hemodynamics were performed. If it is a full study please repeat the study for valvular assessment Rosangela Zhu MD (Electronically Signed) Final Date: 28 August 2021 19:11 S
--- NOTE | 2021-08-28 15:46 | USR_ITS ---
PROCEDURE INFORMATION: Exam: US Duplex Lower Extremity Veins, Bilateral Exam date and time: 08/28/2021 3:46 PM Age: 36 years old Clinical indication: Pulmonary embolism. DVT. TECHNIQUE: Imaging protocol: Real-time duplex ultrasound of the extremities with 2-D parra scale, color Doppler flow and spectral waveform analysis with image documentation. Complete exam focused on the bilateral lower extremity veins. COMPARISON: US OB >14 Weeks [id number] 06/27/2017 1:08 PM FINDINGS: The common femoral, femoral, popliteal and posterior tibial veins are patent. There is appropriate compression and augmentation. Doppler interogation reveals venous blood flow. US/[place] [id number] IMPRESSION: No evidence of deep venous thrombosis.
[2021-08-28] MEDS: enoxaparin 100 mg/mL Syringe SUBCUT (17:09)
[2021-08-28 19:00] LABS: Troponin 5 6HR 21.18 ng/L (0-10); Troponin 5 6HR Delta 3.18 ng/L (0-12)
--- NOTE | 2021-08-28 19:04 | PC.NURSE ---
Report to Marina AVALOS at this time.
[2021-08-29] VITALS: BP 113/81; PULSE 104; RESP 17; TEMP 38.2; O2SAT 92
[2021-08-29] MEDS: piperacillin-tazobactam 3.375 GM in sodium chloride 0.9% (plus) 50 ML IV ×2 (01:43→08:09)
[2021-08-29 03:17] LABS: Basophils # 0.1 10^3/uL (0.0-0.1); Basophils % 0.8 %; Eosinophils # 0.2 10^3/uL (0.0-0.8); Eosinophils % 1.9 %; Hematocrit 33.8 % (37.0-47.0); Hemoglobin 11.1 g/dL (11.5-15.3); Lymphocytes # 1.8 10^3/uL (0.8-4.8); Lymphocytes % 20.2 %; Mean Corpuscular HGB Conc 32.8 g/dL (30.0-36.0); Mean Corpuscular Hemoglobin 28.5 pg (28.0-34.0); Mean Corpuscular Volume 86.7 fl (81-99); Mean Platelet Volume 9.7 fL (7.4-10.4); Monocytes # 0.9 10^3/uL (0.2-0.9); Monocytes % 9.9 %; Neutrophils # 5.93 10^3/uL (1.8-7.7); Neutrophils % 66.6 %; Nucleated Red Blood Cells % 0 %; Platelet Count 289 10^3/cmm (130-400); White Blood Count 8.9 10^3/uL (4.0-10.0)
[2021-08-29 03:38] LABS: C Reactive Protein 170.2 mg/L (0.0-4.9); Procalcitonin 0.46 ng/mL (0-0.5)
[2021-08-29 03:42] LABS: Alanine Aminotransferase 45 U/L (0-33); Albumin Level 2.9 g/dL (3.5-5.2); Alkaline Phosphatase 80 IU/L (35-105); Anion Gap 16.4 (5-19); Aspartate Amino Transferase 23 U/L (0-32); Blood Urea Nitrogen 8 mg/dL (6-20); Calcium 8.1 mg/dL (8.5-10.5); Carbon Dioxide 22 mmol/L (22-29); Chloride 103 mmol/L (98-107); Globulin 2.8 g/dL (1.3-4.6); Glomerular Filtration Rate 141.2 mL/min (90-130); Glucose 84 mg/dL (65-115); Osmolality Calculated 284 mOsm/kg (285-295); Potassium 3.4 mmol/L (3.5-5.1); Sodium 138 mmol/L (136-145); Total Bilirubin 0.8 mg/dL (0.15-1.2); Total Protein 5.7 g/dL (6.6-8.7)
[2021-08-29 04:00] VITALS: BP 119/77; PULSE 101; RESP 17; TEMP 37.1; O2SAT 92
[2021-08-29] MEDS: enoxaparin 150 mg/mL Syringe 140 MG SUBCUT (06:06)
[2021-08-29 07:24] VITALS: BP 147/83; PULSE 100; RESP 16; TEMP 36.6; O2SAT 92
[2021-08-29 07:31] VITALS: RESP 18
[2021-08-29] MEDS: oxyCODONE 5 mg IR Tab/Cap PO (07:31)
--- NOTE | 2021-08-29 10:11 | PM.DCS ---
Discharge Providers Date of Admission: 08/26/21 00:14 Date of Discharge: August 29, 2021 Attending Provider at Admission: Adrianna Lutz MD Attending Provider at Discharge: Maynor Haro MD Primary Care Provider: Dolores Birmingham DO Diagnoses at Discharge Discharge Diagnosis (1) Acute cholecystitis: Status: Acute Reason for Visit Reason for Visit: RUQ/UPPER CENTRAL ABD PAIN: GALLBLADDER PROBLEMS Hospital Course Hospital Course 36 year old female without known medical comorbidties p/w upper abdominal pain that started 2 days ago, intermittent, radiating into her back. Further work-up during the hospital stay revealed acute cholecystitis s/p laparoscopic cholecystectomy, she was empirically covered with antibiotics, and and was discharged on p.o. Augmentin for another 7 days, hospital course was also complicated by development of acute PE, likely provoked PE, for which she was started on therapeutic anticoagulation, she was discharged on p.o. Eliquis, for another 3 months.She responded well to above medical and surgical management and is being discharged in stable condition she will continue to follow-up with her primary care physician, also follow-up with Dr. Cadet in 2 weeks. Physical Exam Const: COMMON NORMALS: patient oriented x3 HENMT: COMMON NORMALS: normocephalic and atraumatic HEAD & SCALP: normocephalic and atraumatic Resp: COMMON NORMALS: No retractions EFFORT & INSPECTION: Yes symmetric chest movement Cardio: COMMON NORMALS: regular rate, regular rhythm, S1 normal heart sound present, S2 normal heart sound present, No gallops present (Cardio), No murmurs present (Cardio), No rub (Cardio) and Peripheral pulses 2+ throughout RATE: regular rate RHYTHM: regular rhythm HEART SOUNDS: S1 normal heart sound present and S2 normal heart sound present PERIPHERAL PULSES: Peripheral pulses 2+ throughout GI: COMMON NORMALS: Normal to inspection, nondistended, normoactive bowel sounds present, Soft to palpation, non-tender, No hepatosplenomegaly present and no masses AUSCULTATION: Yes normoactive bowel sounds PALPATION: Yes Soft to palpation and Yes No hepatosplenomegaly present RECTAL EXAM: deferred Extremity: COMMON NORMALS: no clubbing, cyanosis or edema and no pedal edema Neuro: COMMON NORMALS: patient oriented x3 Discharge Data Data Completed and Pending: Completed Studies During Hospitalization Category Date Time Status CT angio chest PE protcl [id number] Stat Cat Scan 08/28/21 13:43 [place] [id number] Routin e Ultrasound 08/28/21 15:46 Completed CV. echo limited [id number] Routine Ultrasound 08/28/21 15:38 Completed US gall bladder 7 [id number] Urgent Ultrasound 08/25/21 18:03 Completed Pending at discharge Category Date Time Status C Reactive Protei n AM LABS Lab 08/30/21 04:00 Ordered Procalcitonin AM LABS Lab 08/30/21 04:00 Ordered Pathology: Surgic al [PTH] Routine Pth 08/26/21 13:31 Received Labs from last 24 hours 08/29/21 08/29/21 08/29/21 02:48 02:48 02:48 WBC 8.9 RBC 3.90 L Hgb 11.1 L Hct 33.8 L MCV 86.7 MCH 28.5 MCHC 32.8 RDW 13.0 Plt Count 289 MPV 9.7 Neut % (Auto) 66.6 Lymph % (Auto) 20.2 [place] % (Auto) 9.9 Eos % (Auto) 1.9 Baso % (Auto) 0.8 Neut # (Auto) 5.93 Lymph # (Auto) 1.8 [place] # (Auto) 0.9 Eos # (Auto) 0.2 Baso # (Auto) 0.1 Nucleated RBC % (a uto) 0 Nucleated RBCs # 0.0 Sodium 138 Potassium 3.4 L Chloride 103 Carbon Dioxide 22 Anion Gap 16.4 BUN 8 Creatinine 0.5 GFR Calculation 141.2 H Glucose 84 Calculated Osmolal ity 284 L Calcium 8.1 L Total Bilirubin 0.8 AST 23 ALT 45 H Alkaline Phosphata se 80 Troponin T Baselin e Troponin T 120 Min [place] Delta Troponin T Troponin T Hi Sens 6Hr Troponin T Hi Sens 6Hr Delta C-Reactive Protein Total Protein 5.7 L Albumin 2.9 L Globulin 2.8 Procalcitonin 0.46 08/29/21 08/28/21 08/28/21 02:48 18:28 13:10 WBC RBC Hgb Hct MCV MCH MCHC RDW Plt Count MPV Neut % (Auto) Lymph % (Auto) [place] % (Auto) Eos % (Auto) Baso % (Auto) Neut # (Auto) Lymph # (Auto) [place] # (Auto) Eos # (Auto) Baso # (Auto) Nucleated RBC % (a uto) Nucleated RBCs # Sodium Potassium Chloride Carbon Dioxide Anion Gap BUN Creatinine GFR Calculation Glucose Calculated Osmolal ity Calcium Total Bilirubin AST ALT Alkaline Phosphata se Troponin T Baselin e Troponin T 120 Min [place] 16.05 H Delta Troponin T -1.95 L Troponin T Hi Sens 6Hr 21.18 H Troponin T Hi Sens 6Hr Delta 3.18 C-Reactive Protein 170.2 H Total Protein Albumin Globulin Procalcitonin 08/28/21 11:01 WBC RBC Hgb Hct MCV MCH MCHC RDW Plt Count MPV Neut % (Auto) Lymph % (Auto) [place] % (Auto) Eos % (Auto) Baso % (Auto) Neut # (Auto) Lymph # (Auto) [place] # (Auto) Eos # (Auto) Baso # (Auto) Nucleated RBC % (a uto) Nucleated RBCs # Sodium Potassium Chloride Carbon Dioxide Anion Gap BUN Creatinine GFR Calculation Glucose Calculated Osmolal ity Calcium Total Bilirubin AST ALT Alkaline Phosphata se Troponin T Baselin e 18 H Troponin T 120 Min [place] Delta Troponin T Troponin T Hi Sens 6Hr Troponin T Hi Sens 6Hr Delta C-Reactive Protein Total Protein Albumin Globulin Procalcitonin Vitals: Last Vital Signs Temp 97.8 F 08/29/21 07:24 Pulse 100 08/29/21 07:24 Resp 18 08/29/21 07:31 BP 147/83 08/29/21 07:24 Pulse Ox 92 08/29/21 07:24 Discharge Plan Discharge Patient Disposition: Home Condition: Stable Prescriptions: New Augmentin 500-125 mg tablet 1 tab PO BID 7 Days Qty: 14 RF: 0 Eliquis 5 mg tablet 5 mg PO BID 30 Days Qty: 60 RF: 3 oxycodone-acetaminophen 5-325 mg tablet 1 tab PO Q8H Qty: 14 RF: 0 Discharge Orders: Discharge Order (Routine); Ordered 08/29/21 Ordered By: Maynor Haro Referrals: Stevo Cadet MD [Physician] - 09/12/21 2:30 pm (You have an appointment with Dr. Cadet on September 12 at 2:30 pm.) Dolores Birmingham DO [Primary Care Provider] - 2 weeks (Please call to make an appointment to be seen in two weeks.) Discharge Diet: Advance as tolerated Discharge Activity: Resume usual activity Patient Instructions: Amoxicillin/Clavulanate Potassium (By mouth) (Augmentin, Augmentin..., Apixaban (By mouth) (Eliquis), Abdominal Pain (ED), Laparoscopic Cholecystectomy (DC), Opioid Safety Discharge Attestations Time Spent in Discharge Care*: greater than 30 min Specific Discharge Activities: educating patient, educating and/or supporting family/caregiver, discussing with pcp/other providers, discussing with community case manager/social workers/dc planners, documenting/other paperwork and evaluating patient/reviewing data Status at Discharge: Cognitive status at discharge: cognitively intact, Behavioral status at discharge: cooperative, Functional status at discharge: independent ambulation Overall status at discharge: patient is back to baseline Quality Metrics Clinical Quality Measures During this hospital stay, did patient experience: None Coding Level of Care Code Acute Chg FW DC note Diagnoses Acute cholecystitis K81.0
--- NOTE | 2021-08-29 10:41 | PM.PN ---
Vitals/I&O/Wt Last Vital Signs Temp 97.8 F 08/29/21 07:24 Pulse 100 08/29/21 07:24 Resp 18 08/29/21 07:31 BP 147/83 08/29/21 07:24 Pulse Ox 92 08/29/21 07:24 08/28/21 08/29/21 08/29/21 22:59 06:59 14:59 Intake Total 530 / 1030 50 / 1080 360 / 360 Output Total 3 / 53 Balance 530 / 980 47 / 1027 360 / 360 Data : 08/29/21 02:48 08/29/21 02:48 A&P Additional A&P Information 36-year-old female who is postop day 3 from laparoscopic cholecystectomy for acute on chronic cholecystitis. Patient was ready for discharge yesterday, she was found to have tachycardia, an EKG was ordered which was followed up with troponins and a CT angio of the chest. Troponin elevation was not significant enough to suggest myocardial infarction, however the CT angio chest demonstrated a small pulmonary embolism. Today the patient is doing very well. She is tolerating a diet and her pain is well controlled. She is ambulating. She has no fever and a normal blood pressure. Her heart rate is at the upper limit of normal at [address] I discussed with Dr. Haro, we will discharge the patient with a prophylactic dose of oral Eliquis. She will also benefit from completing 4 additional days of oral antibiotics. in addition, the patient will need follow-up with Dr. Laureano in 1 to 2 weeks. 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
[2021-08-29 11:30] VITALS: BP 147/83; PULSE 100; RESP 18; TEMP 36.6; O2SAT 92
--- NOTE | 2021-08-29 11:32 | PC.NURSE ---
IV removed intact. Patient tolerated. Patient is A&Ox3. Respirations even and non-labored on room air. Reviewed patient discharge with patient at this time. Patient verbalized understanding of follow up appointments and medications. Patient ambulated to wheel chair and was pushed to private car.
== END 2021-08-29 11:35 | disposition home or self-care (01) | DRG 417 ==
LOC: ER 23:48 → MEDSURG 08-26 03:14
PROVIDERS: Emergency Medicine; Family Medicine; Surgery; Admitting Provider Student in an Organized Health Care Education/Training Program; Emergency Provider Emergency Medicine; PCP Family Medicine; Visit Provider Internal Medicine
PROC: 0FT44ZZ Resection of Gallbladder, Percutaneous Endoscopic Approach (ICD-10-PCS; CPT 47562; principal; 2021-08-26 10:00)
DX: K80.12 Calculus of gallbladder with acute and chronic cholecystitis without obstruction (principal); I26.99 Other pulmonary embolism without acute cor pulmonale; Z68.42 Body mass index [BMI] 45.0-49.9, adult; E66.01 Morbid (severe) obesity due to excess calories; R00.0 Tachycardia, unspecified
CPT/HCPCS: 12345; 36415; 71275; 76705; 80053; 81001; 83690; 84145; 84484; 84703; 85025; 85610; 85730; 86140; 87635; 88304; 88307; 93005; 93308; 93970; 96365; 96367; 96372; 96375; 99285; J0690; J1100; J1170; J1200; J1650; J1885; J2270; J2405; J2543; J2710; J3010; J3490; J7030; Q9967

== ENCOUNTER 2022-02-02 08:20 | Outpatient (CLI) | payer OTHER, SELFPAY ==
--- NOTE | 2022-02-02 08:40 | FL_ITS ---
WS: [id number] Exam: FL upper GI w air* [id number] Date/Time of Exam: 02/02/2022 8:40 AM Reason For Exam: MORBID OBESITY Swallowing function at the level of the oropharynx was normal. The esophagus is smooth in contour wit h normal motility. Mild gastroesophageal reflux was observed during fluoroscopy with patient in the s upine position. The stomach is freely distensible. No sign of gastric mass or ulcer. The duodenal bul b is smooth in contour. Barium spills freely into the proximal left jejunum without obstruction. Sign s of prior cholecystectomy. FL/FL upper GI w air* [id number] IMPRESSION: 1. Mild gastroesophageal reflux extending into the lower one third of the esoph estela noted when the patient was in the supine position. 2. The stomach and duodenum were unremarkable. No sign of gastric mass or pepti c ulcer disease.
== END 2022-02-02 08:21 | disposition home or self-care (01) ==
PROVIDERS: PCP Nurse Practitioner Family; Visit Provider Surgery
DX: E66.01 Morbid (severe) obesity due to excess calories (principal); K21.9 Gastro-esophageal reflux disease without esophagitis; Z90.49 Acquired absence of other specified parts of digestive tract
CPT/HCPCS: 74246

== ENCOUNTER 2022-12-01 14:34 | Outpatient (CLI) | payer OTHER, SELFPAY ==
[2022-12-01 16:10] LABS: Troponin T (5th) Once 6 ng/L (0-10)
[2022-12-01 16:19] LABS: Anion Gap 11.8 (5-19); Blood Urea Nitrogen 8 mg/dL (6-20); Calcium 9.1 mg/dL (8.5-10.5); Carbon Dioxide 28 mmol/L (22-29); Chloride 107 mmol/L (98-107); Glomerular Filtration Rate 140.4 mL/min (90-130); Glucose 77 mg/dL (65-115); NT Pro B Type Natriuretic Pept 170 pg/mL (0-125); Osmolality Calculated 293 mOsm/kg (285-295); Potassium 3.8 mmol/L (3.5-5.1); Sodium 143 mmol/L (136-145)
== END 2022-12-01 14:35 | disposition home or self-care (01) ==
PROVIDERS: PCP Nurse Practitioner Family; Visit Provider Internal Medicine Cardiovascular Disease
DX: R03.0 Elevated blood-pressure reading, without diagnosis of hypertension (principal); Z14.8 Genetic carrier of other disease; I82.409 Acute embolism and thrombosis of unspecified deep veins of unspecified lower extremity
CPT/HCPCS: 36415; 80048; 83880; 84484

== ENCOUNTER 2022-12-21 09:24 | Outpatient (CLI) | payer OTHER, SELFPAY ==
--- NOTE | 2022-12-21 09:30 | USCV_ITS ---
Remedios Shannon Age: 37 Gender: F : 1985 Exam Date: 12/21/2022 09:44 Ordering Phys: Jamie Alcala MD ([email or web address]) Technologist: Morgan Verdin [place] [facility] [place]: FAMILY HX OF MUSCULAR DYST BP: 134 / 87 HR: 94 Rhythm: Sinus Technical Quality: Adequate MEASUREMENTS (Male / Female) Normal Values 2D ECHO LV Diastolic Diameter PLAX 4.0 cm 4.2 - 5.9 / 3.9 - 5.3 cm LV Systolic Diameter PLAX 2.3 cm IVS Diastolic Thickness 1.2 cm 0.6 - 1.0 / 0.6 - 0.9 cm IVS Systolic Thickness 1.6 cm LVPW Diastolic Thickness 1.2 cm 0.6 - 1.0 / 0.6 - 0.9 cm LVPW Systolic Thickness 1.3 cm LVOT Diameter 2.0 cm LV Ejection Fraction 2D Teich 74.6 % LV Ejection Fraction MOD 2C 62.0 % LV Ejection Fraction 2C AL 61.7 % LA Diameter 3.9 cm Aorta at Sinotubular Diameter 2.4 cm IVC Diameter 2.0 cm M-MODE LV Diastolic Diameter MM 5.1 cm 4.2 - 5.9 / 3.9 - 5.3 cm LV Systolic Diameter MM 3.0 cm LV Ejection Fraction MM Teich 72.5 % IVS Diastolic Thickness MM 1.0 cm 0.6 - 1.0 / 0.6 - 0.9 cm IVS Systolic Thickness MM 1.8 cm LVPW Diastolic Thickness MM 1.1 cm 0.6 - 1.0 / 0.6 - 0.9 cm LVPW Systolic Thickness MM 1.8 cm RV Diastolic Diameter MM 1.8 cm Aortic Annulus Diameter 3.1 cm LA Ao Ratio MM 1.4 MV E Point Septal Separation 0.9 cm DOPPLER AV Peak Velocity 161.0 cm/s LVOT Peak Velocity 102.0 cm/s AV Area Cont Eq vti 2.0 cm squared AV Area Cont Eq pk 2.0 cm squared MV Area PHT 5.0 cm squared Mitral E to A Ratio 1.0 MV E' Velocity 43.5 cm/s Mitral E to MV E' Ratio 7.0 Mitral E to LV E' Lateral Ratio 5.8 Mitral E to LV E' Septal Ratio 9.0 TR Peak Velocity 138.0 cm/s TR Peak Gradient 7.6 mmHg TV Peak E Velocity 83.0 cm/s Right Atrial Pressure 3.0 mmHg Pulmonary Artery Systolic Pressu 10.6 mmHg RV Acceleration Time 0.2 s FINDINGS Left Ventricle Normal left ventricular size and systolic function, EF 65 %. No regional wall motion abnormalities. Right Ventricle The right ventricle is normal in size and function. Right Atrium The right atrium is normal in size. Left Atrium The left atrium is normal in size. Mitral Valve Trace mitral valve regurgitation. Aortic Valve No gross abnormalities noted Tricuspid Valve No gross abnormalities noted Pulmonic Valve No gross abnormalities noted Pericardium Normal pericardium without effusion. Aorta Normal ascending aorta dimension. IVC The inferior vena cava appears normal. CONCLUSIONS Normal left ventricular size and systolic function, EF 65 %. No regional wall motion abnormalities. Trace mitral valve regurgitation. Normal cardiac chamber sizes. No significant stenotic or regurgitant lesions There is no pericardial effusion. There are no intracardiac masses. Compared to the study from 08/28/2021, there may not be a significant change Dr Jamie Alcala MD FACC (Electronically Signed) Final Date: 25 December 2022 20:50 S
== END 2022-12-21 09:25 | disposition home or self-care (01) ==
PROVIDERS: PCP Nurse Practitioner Family; Visit Provider Internal Medicine Cardiovascular Disease
DX: R06.09 Other forms of dyspnea (principal); I34.0 Nonrheumatic mitral (valve) insufficiency
CPT/HCPCS: 93306

== ENCOUNTER 2023-07-20 13:00 | Outpatient (CLI) | payer OTHER, SELFPAY ==
--- NOTE | 2023-07-20 13:20 | XRR_ITS ---
PROCEDURE INFORMATION: Exam: XR Abdomen Exam date and time: 07/20/2023 1:28 PM Age: 38 years old Clinical indication: Abdominal pain; Additional info: Pain in the abdomen TECHNIQUE: Imaging protocol: Radiologic exam of the abdomen. Views: Frontal supine view of the abdomen. 1 View. COMPARISON: US gall bladder [id number] 08/25/2021 7:45 PM FINDINGS: Gastrointestinal tract: Normal. No bowel dilation. Bones/joints: Unremarkable. XR/XR KUB [id number] IMPRESSION: No acute findings.
== END 2023-07-20 13:01 | disposition home or self-care (01) ==
PROVIDERS: PCP Nurse Practitioner Family; Visit Provider Internal Medicine Cardiovascular Disease
DX: R10.9 Unspecified abdominal pain (principal)
CPT/HCPCS: 74018